=== PATIENT | male | born 1965 | race Caucasian/White ===

== ENCOUNTER 2017-03-18 15:55 | Observation (INO) ==
--- NOTE | 2017-03-18 16:50 | Emergency Department Note ---
START Narrative - START START: I examined this patient and my medical decision-making was reviewed with the Resident Physician, Daniel Rodriguez. I agree with the documented findings, disposition and treatment plan as described except to the extent set forth below. I have personally performed a face to face evaluation on this patient. I have reviewed and agree with the care plan. Briefly: A 52-year-old male morbidly obese history of foot appears to be CHF and chronic lower extremity venous insufficiency on clindamycin for healing leg ulcers develop watery stools slipped and fell although chief complaint is left leg pain patient has no leg pain on history of physical examination. Patient will have screening labs including C. difficile toxin and stool will be admitted for rehabilitation and further evaluation. Disposition pending
--- NOTE | 2017-03-18 16:53 | Emergency Department Note ---
Disposition Clinical Impression: Supratherapeutic INR, Lower leg edema Falls Qualifiers: Encounter type: initial encounter Qualified Code(s): W19.XXXA - Unspecified fall, initial encounter Disposition: Admitted As Inpatient Condition: Fair Time of Disposition: 17:41 General Adult HPI - General Chief complaint: ED Extremity Injury, Lower Stated complaint: left leg pain Time Seen by Provider: 03/18/17 16:06 Source: patient Mode of arrival: ambulatory Limitations: no limitations Nursing Notes Reviewed: Yes Vital Signs Reviewed: Yes - History of Present Illness HPI Narrative: 52-year-old male with a history of A. fib on Coumadin and chronic lower leg edema present for evaluation of recurrent falls. Patient states that these fallen at least twice in the past week. Patient states his most recent fall was prior to arrival. Patient states that he was using his walker and slipped where his left leg gave out. Patient denies any pain High-Risk chief complaint does say that he has left leg pain. Patient denies any dyspnea. Patient has a chest pain. States he has been receiving clindamycin for a chronic warts from the ulcer which appears to be healing per the patient. Patient states that he has been having profuse diarrhea. Denies any fevers. No nausea or vomiting. Pain Scale: 0 - Related Data Home Medications Medication Instructions Recorded Confirmed Allopurinol [Zyloprim 300 MG] 300 mg PO DAILY #0 11/17/14 03/18/17 Diltiazem HCl [Diltiazem 24Hr Cd] 240 mg PO DAILY #0 11/17/14 03/18/17 Lisinopril [Zestril] 2.5 mg PO DAILY 04/15/15 03/18/17 Potassium Chloride [K-Tab ER] 20 meq PO DAILY 04/15/15 03/18/17 Ropinirole HCl [Requip] 2 mg PO HS 04/15/15 03/18/17 clonazePAM [Klonopin] 1 mg PO BID 04/15/15 03/18/17 Zolpidem Tartrate [Ambien Cr] 12.5 mg PO HS 04/24/15 03/18/17 BuPROPion XL (24 HR) [Wellbutrin 300 mg PO DAILY 03/18/17 03/18/17 XL] Clindamycin HCl [Cleocin HCl] 300 mg PO QID 03/18/17 03/18/17 Lactobacillus Acidophilus 1 cap PO DAILY 03/18/17 03/18/17 [Acidophilus] Warfarin [Coumadin] 5 mg PO DAILY 03/18/17 03/18/17 Previous Rx's Medication Instructions Recorded Oxycodone HCl/Acetaminophen 1 tab PO Q6H PRN #15 tablet 04/26/15 [Percocet 10-325 mg Tablet] Allergies Allergy/AdvReac Type Severity Reaction Status Date / Time codeine Allergy Drowsy Verified 11/17/14 10:56 acetaminophen AdvReac STOMACH Verified 04/24/15 07:34 [From Darvocet-N 100] PAIN cephalexin [From Keflex] AdvReac FLU LIKE Verified 04/24/15 07:34 SYMPTOMS colchicine AdvReac Diarrhea Verified 04/24/15 07:34 propoxyphene AdvReac STOMACH Verified 04/24/15 07:34 [From Darvocet-N 100] PAIN [id number] Reductase AdvReac Nausea Verified 04/24/15 07:34 Inhibitor [Statins] All systems ED: reviewed and negative except as stated. Constitutional: Denies: fever Eyes: Denies: eye pain ENT ED: Denies: ear pain Cardiovascular: Denies: chest pain Respiratory: Denies: cough, dyspnea Gastrointestinal: Reports: diarrhea. Denies: abdominal pain, nausea Past Medical History - Past Medical History Source: patient Medical history: Reports: atrial fibrillation, GERD, hypertension, kidney stones , venous stasis Surgical history: Reports: other Psychiatric history: Reports: anxiety, depression, prior suicide attempt, previous psychiatric hospitalization - Social History Smoking Status: Never smoker Smokeless Tobacco Status: No Alcohol use: Reports: none Drug use: Reports: none Physical Exam - General Limitations: no limitations General appearance: alert, in no apparent distress, obese - Head Head exam: atraumatic, normocephalic, normal inspection - Eye Eye exam: Present: normal appearance, PERRL, EOMI - ENT ENT exam: normal exam, normal oropharynx, mucous membranes moist - Neck Neck exam: Present: normal inspection, full ROM, trachea midline - Chest Chest inspection: Present: normal inspection, symmetric chest wall rise - Respiratory Respiratory exam: Present: normal lung sounds bilaterally, respiratory distress - Cardiovascular Cardiovascular exam: Present: normal rhythm, irregular rhythm. Absent: systolic murmur - Abdominal Exam Abdominal exam: Present: soft, Non-Tender, distention. Absent: guarding, rebound - Extremities Exam Extremities exam: Present: normal inspection, pedal edema (Chronic lower extremity edema with vascular skin changes. Symmetric. ) - Neurological Exam Neurological exam: Present: alert, oriented X3, CN II-XII intact - Skin Skin exam: Present: warm, dry, intact, normal color Course Course Narrative: Patient arrives from EMS. Patient states that he can no longer take care of himself at home given his recurrent falls. Patient likely has physical deconditioning as well as comorbidities that do not allow him to perform as activities of daily living. Patient to basic lab work including EKG and troponin and chest x-ray. Patient would likely need admitted for formal physical therapy evaluation and discharge planning. Vital Signs Temperature 97.2 F L 03/18/17 15:56 Pulse Rate 76 03/18/17 15:56 Respiratory Rate 20 03/18/17 15:56 Blood Pressure 130/80 03/18/17 15:56 O2 Sat by Pulse Oximetry 96 03/18/17 15:56 Temperature 97.2 F L 03/18/17 15:56 Pulse Rate 76 03/18/17 15:56 Respiratory Rate 20 03/18/17 15:56 Blood Pressure 130/80 03/18/17 15:56 O2 Sat by Pulse Oximetry 96 03/18/17 15:56 Oxygen Delivery Oxygen Delivery Room Air Medical Decision Making - [facility] Narrative Medical decision making narrative: 52 presents for evaluation of recurrent falls. Patient does not have any loss of conscious. During the course of the patient's evaluation the patient was noted have subtherapeutic INR. Patient did not receive a head CT as the patient does not exhibit any focal neurologic deficits. Patient's mechanism of fall did not appear to be high-energy. Patient simply lost his balance with his left foot. Gently bringing himself to the ground. Patient states that he can no longer help and assistance of at home. Patient's chest x-ray shows no acute abnormalities. Patient's hemogram is stable on his A. fib. Patient does have chronic lower vascular insufficiency and ulcers. Patient's been on clindamycin. Patient's having diarrhea and C. difficile was ordered from ED visit. This is the patient's second ED presentation in the past couple days. Patient is not physically fit enough to take care of herself at home. Concerns of repeat ED presentation as well as recurrent falls on subtherapeutic INR therefore the patient will be hospitalized. Patient would best benefit from hospitalization with formal PT OT evaluation. - Lab Data Lab results reviewed: Yes I reviewed the patient's lab results. Result diagrams: 03/18/17 16:54 03/18/17 16:54 Lab Results 03/18/17 03/18/17 03/18/17 Range/Units 16:50 16:54 16:54 WBC (4.3-11.1) K/mcL RBC (4.19-5.50) M/mcL Hgb (12.9-16.9) g/dL Hct (37.5-50.1) % MCV (83.0-100.0) fL MCH (28.0-33.3) pg MCHC (31.6-35.5) g/dL RDW (11.5-14.5) % Plt Count (140-400) K/mcL MPV (9.4-12.4) fL Immature Gran % (0-4) % Seg Neutrophils % % Lymphocytes % % Monocytes % % Eosinophils % % Basophils % % Neutrophils # (1.6-8.9) K/mcL Lymphocytes # (0.6-4.6) K/mcL Monocytes # (0.0-1.3) K/mcL Eosinophils # (0.0-0.6) K/mcL Basophils # (0.0-0.2) K/mcL PT 39.4 H (9.4-12.1) Seconds INR 3.6 Sodium (136-145) mEq/L Potassium (3.5-5.1) mEq/L Chloride (98-107) mEq/L Carbon Dioxide (23-29) mEq/L BUN (6-20) mg/dL Creatinine (0.70-1.30) mg/dL Est GFR ( Amer) (> 60) Est GFR (Non-Af Amer) (> 60) BUN/Creatinine Ratio (6-26) Glucose (70-105) mg/dL Calculated Osmolality (280-300) Calcium (8.6-10.3) mg/dL Troponin I (< 0.04) ng/mL B-Natriuretic Peptide 60 (Less than 100) pg/mL Stl C. diff Tox B Gene Negative (Negative) 0203/18/17 03/18/17 Range/Units 16:54 16:54 16:54 WBC 8.8 (4.3-11.1) K/mcL RBC 4.31 (4.19-5.50) M/mcL Hgb 13.8 (12.9-16.9) g/dL Hct 42.0 (37.5-50.1) % MCV 97.4 (83.0-100.0) fL MCH 32.0 (28.0-33.3) pg MCHC 32.9 (31.6-35.5) g/dL RDW 14.9 H (11.5-14.5) % Plt Count 295 (140-400) K/mcL MPV 12.5 H (9.4-12.4) fL Immature Gran % 0.3 (0-4) % Seg Neutrophils % 66.2 % Lymphocytes % 16.3 % Monocytes % 11.7 % Eosinophils % 5.0 % Basophils % 0.5 % Neutrophils # 5.8 (1.6-8.9) K/mcL Lymphocytes # 1.4 (0.6-4.6) K/mcL Monocytes # 1.0 (0.0-1.3) K/mcL Eosinophils # 0.4 (0.0-0.6) K/mcL Basophils # 0.0 (0.0-0.2) K/mcL PT (9.4-12.1) Seconds INR Sodium 138 (136-145) mEq/L Potassium 3.5 (3.5-5.1) mEq/L Chloride 103 (98-107) mEq/L Carbon Dioxide 29 (23-29) mEq/L BUN 10 (6-20) mg/dL Creatinine 0.83 (0.70-1.30) mg/dL Est GFR ( Amer) > 60 (> 60) Est GFR (Non-Af Amer) > 60 (> 60) BUN/Creatinine Ratio 12 (6-26) Glucose 93 (70-105) mg/dL Calculated Osmolality 285 (280-300) Calcium 9.7 (8.6-10.3) mg/dL Troponin I < 0.03 (< 0.04) ng/mL B-Natriuretic Peptide (Less than 100) pg/mL Stl C. diff Tox B Gene (Negative) - Radiology Data Radiology results reviewed: Yes I reviewed the patient's radiology results. Chest X-Ray 03/18/17 16:06 IMPRESSION: No visualize focal airspace disease. D/ / Dannielle Griffin MD / Dannielle Griffin MD Interpreting Provider: Dannielle Griffin MD - EKG Data EKG #1 EKG attestation: Yes I reviewed and interpreted this EKG. Rate: tachycardia Rhythm: A.Fib [place]/QRS: left axis deviation Q waves: aVF Interpretation: unchanged when compared to prior tracing (date), nonspecific ST- T wave changes S.B.A.R. - S.B.A.R. Situation: Demographics Background: Presenting Complaint Assessment: Vital Signs, Course and respsone to treatment, Patient/Family Expectation Recommendation: Barrier(s) to disposition, Recommendation based on pending studies, treatments, or consults S.B.A.R. Report Given to: Troy Meek [email or web address] Repor Time: 18:00
[2017-03-18 17:13] LABS: Basophils % 0.5 %; Eosinophils # 0.4 K/mcL (0.0-0.6); Hemoglobin 13.8 g/dL (12.9-16.9); Immature Granulocytes % 0.3 % (0-4); Lymphocytes # 1.4 K/mcL (0.6-4.6); Lymphocytes % 16.3 %; Mean Corpuscular HGB Conc 32.9 g/dL (31.6-35.5); Mean Corpuscular Volume 97.4 fL (83.0-100.0); Mean Platelet Volume 12.5 fL (9.4-12.4); Monocytes % 11.7 %; Neutrophils # 5.8 K/mcL (1.6-8.9); Platelet Count 295 K/mcL (140-400); Red Blood Count 4.31 M/mcL (4.19-5.50); Red Cell Distribution Width 14.9 % (11.5-14.5); Segmented Neutrophils % 66.2 %
[2017-03-18 17:26] LABS: INR 3.6; Prothrombin Time 39.4 Seconds (9.4-12.1)
[2017-03-18 17:32] LABS: BUN/Creatinine Ratio 12 (6-26); Blood Urea Nitrogen 10 mg/dL (6-20); Calcium 9.7 mg/dL (8.6-10.3); Carbon Dioxide 29 mEq/L (23-29); Chloride 103 mEq/L (98-107); Glucose 93 mg/dL (70-105); Osmolality,Calculated 285 (280-300); Potassium 3.5 mEq/L (3.5-5.1); Sodium 138 mEq/L (136-145); eGFR For African Americans > 60 (> 60); eGFR For Non-African Americans > 60 (> 60)
[2017-03-18] MEDS ORDERED: Naloxone 0.4 MG/ML INJ IVP PRN (18:43)
[2017-03-18] MEDS ORDERED: *HR* OxyCODONE/APAP 10/325 TABLET PO PRN (19:34)
[2017-03-18] MEDS: clonazePAM 1 MG TABLET PO SCH (21:50)
[2017-03-18] MEDS: rOPINIRole 1 MG TABLET PO SCH (21:50)
--- NOTE | 2017-03-18 21:59 | Internal Med History&Physical ---
Date of Encounter: 03/18/17 Time of Encounter: 18:00 Assessment and Plan (1) Falls Current visit: Yes Status: Acute Acute on chronic falls. Pt. reports fall today as well as hx of falls at home. Pt. fell today d/t left leg giving out. Reports bilateral leg weakness. Pt. has BMI of 59.4 and is 204.117 kg. Body habitus playing a role in LE weakness. Reports no injury from today's fall but expresses anxiety r/t fear of falling at home. Was hospitalized at [facility] and discharged on Monday for same sx. Falls/safety precautions, up with assist, and bed rest w/bathroom privileges. PT/OT consults ordered to assess patient for ambulation strength, stability, safety, and possible home assistive needs as well as appropriateness for rehabilitation services in SNF. Pt. discussed w/Dr. Freedman who is in agreement w/plan of care. Pt. is high risk for further morbidity and injury d/t hx of falls, bilateral leg weakness, and body habitus size. Observation. Qualifiers: Encounter type: initial encounter Qualified Code(s): W19.XXXA - Unspecified fall, initial encounter (2) GERD (gastroesophageal reflux disease) Current visit: Yes Status: Chronic Hx of chronic GERD. IVP Zofran 4 mg Q8 for N/V. Prilosec 40 mg PO daily. Qualifiers: Esophagitis presence: esophagitis presence not specified Qualified Code(s) : K21.9 - Gastro-esophageal reflux disease without esophagitis (3) HTN (hypertension) Current visit: Yes Status: Chronic Hx of chronic HTN. Monitor pt. and VS. Continue pts. lisinopril. Qualifiers: Hypertension type: essential hypertension Qualified Code(s): I10 - Essential (primary) hypertension (4) Lower leg edema Current visit: Yes Status: Chronic Hx of chronic LE edema d/t chronic venous stasis. Pt. reports being followed by Wound Care for venous stasis. Skin ulcers present on bilateral soles of feet and on buttocks. Wound Care consult and daily wound care ordered. (5) Atrial fibrillation Current visit: Yes Status: Chronic Hx of chronic atrial fibrillation. Continue patient's Coumadin with pharmacy dosing and Diltiazem. Continuous cardiac telemetry. Qualifiers: Atrial fibrillation type: chronic Qualified Code(s): I48.2 - Chronic atrial fibrillation (6) Gout Current visit: Yes Status: Chronic Hx of chronic gout. Continue pts. allopurinol. Qualifiers: Gout site: unspecified site Gout etiology: unspecified cause Chronicity: unspecified Qualified Code(s): M10.9 - Gout, unspecified (7) Anxiety and depression Current visit: Yes Status: Chronic Hx of chronic anxiety and depression. Continue patient's Klonopin and Wellbutrin. (8) DVT prophylaxis Current visit: Yes Status: Acute Continue patient's Coumadin with pharmacy dosing for DVT prophylaxis. Monitor patient for signs of bleeding. Internal Medicine - H&P: HPI Chief complaint: Fall Admitted From: Emergency Dept Plans for Post Hospital Care: Home History of present illness: Mr. Nick is a 52 year old male with medical hx of atrial fibrillation, GERD, HTN, kidney stones, venous stasis in bilateral LEs presents from the ED with chief complaint of fall today due to bilateral leg weakness. Patient reports he has fallen at least twice in the past week and has history of falls at home. Patient states he was using his walker when his left leg became weak and gave out on him. Patient reports he went down slowly and did not suffer injury. Patient reports bilateral leg weakness and skin ulcers on bilateral soles of feet and buttocks but denies recent illness, fever, chills, nausea, vomiting, headache, changes in vision, chest pain, shortness of breath, cough, chest congestion, abdominal pain, diarrhea, constipation, numbness, tingling, dizziness, lightheadedness, pre-syncope, or syncope. Past Med Surg Social Fam HX - Past Medical History Source: patient, old records reviewed Medical history: atrial fibrillation, GERD, hypertension, kidney stones, venous stasis Psychiatric history: anxiety, depression, prior suicide attempt, previous psychiatric hospitalization - Past Surgical History Surgical History: other - Social History Smoking Status: Never smoker Smokeless Tobacco Status: No Alcohol use: none Drug use: none Current living situation: Home Activity Level: Uses cane/walker Recent Out of Country Travel Within the Last 8 Weeks: No Exposure or Possible Exposure to Illness During Travel: No - Family History Father Race: Family Member Ethnicity: Non- Living Status: Age at : 54 Cause of : [place] Hx Family Cardiac Disorders: Yes ([place]) Mother Race: Family Member Ethnicity: Non- Living Status: Age at : 63 Cause of : Renal Failure Hx Family Genitourinary Disorders: Yes (Renal failure) Internal Medicine - H&P: Meds Allopurinol [Zyloprim 300 MG] 300 mg PO DAILY #0 11/17/14 [History] Diltiazem HCl [Diltiazem 24Hr Cd] 240 mg PO DAILY #0 11/17/14 [History] Lisinopril [Zestril] 2.5 mg PO DAILY 04/15/15 [History] Potassium Chloride [K-Tab ER] 20 meq PO DAILY 04/15/15 [History] Ropinirole HCl [Requip] 2 mg PO HS 04/15/15 [History] clonazePAM [Klonopin] 1 mg PO BID 04/15/15 [History] Zolpidem Tartrate [Ambien Cr] 12.5 mg PO HS 04/24/15 [History] Oxycodone HCl/Acetaminophen [Percocet 10-325 mg Tablet] 1 tab PO Q6H PRN #15 tablet 04/26/15 [Rx] BuPROPion XL (24 HR) [Wellbutrin XL] 300 mg PO DAILY 03/18/17 [History] Clindamycin HCl [Cleocin HCl] 300 mg PO QID 03/18/17 [History] Lactobacillus Acidophilus [Acidophilus] 1 cap PO DAILY 03/18/17 [History] Warfarin [Coumadin] 5 mg PO DAILY 03/18/17 [History] 3 Allergy/AdvReac Type Severity Reaction Status Date / Time codeine Allergy Drowsy Verified 11/17/14 10:56 acetaminophen AdvReac STOMACH Verified 04/24/15 07:34 [From Darvocet-N 100] PAIN cephalexin [From Keflex] AdvReac FLU LIKE Verified 04/24/15 07:34 SYMPTOMS colchicine AdvReac Diarrhea Verified 04/24/15 07:34 propoxyphene AdvReac STOMACH Verified 04/24/15 07:34 [From Darvocet-N 100] PAIN Gkbwjtd-Oxe-Vhi Reductase AdvReac Nausea Verified 04/24/15 07:34 Inhibitor [Statins] All Systems PM: A 10-system review of systems was performed and is negative for pertinent findings except as documented above in the HPI. - Constitutional Constitutional: as per HPI, falls, weakness (Bilateral leg weakness), no chills , no fever(s), no night sweats - EENT Eyes: no change in vision, no discharge, no pain, no photophobia Ears: no ear discharge, no ear pain, no tinnitus Nose, mouth and throat: no dysphagia, no nasal discharge, no neck pain, no sore throat - Breasts Breasts: as per HPI - Cardiovascular Cardiovascular ROS IM: no chest pain, no diaphoresis, no dyspnea, no lightheadedness, no palpitations, no syncope - Respiratory Respiratory: no cough, no dyspnea, no wheezing, no excessive phlegm production - Gastrointestinal Gastrointestinal: no abdominal pain, no diarrhea, no hematemesis, no hematochezia, no melena, no nausea, no vomiting - Genitourinary Genitourinary ROS male: as per HPI - Musculoskeletal Musculoskeletal ROS IM: no numbness, no tingling - Integumentary Integumentary IM: as per HPI, skin ulcer, sores (Bilateral soles of feet and sacrum) - Neurological Neurological ROS: as per HPI (Bilateral legs), weakness, no confusion, no convulsions, no focal weakness, no numbness, no tingling, no tremor(s) - Psychiatric Psychiatric: as per HPI, anxiety, depression, other (Prior suicide attempt in 1998 and previous psychiatric hospitalization) - Endocrine Endocrine IM: as per HPI - Hematologic/Lymphatic Hematologic/Lymphatic: no easy bruising - Allergic/Immunologic Allergic/Immunologic: as per HPI - Constitutional Vitals: Temp Pulse Resp BP Pulse Ox 98.1 F 78 16 136/72 97 03/18/17 19:52 03/18/17 19:52 03/18/17 19:52 03/18/17 19:52 03/18/17 19:52 General appearance: Present: cooperative, A&O X 3, morbidly obese, pleasant, no acute distress, answers questions appropriately - Head Head exam: Present: atraumatic, normocephalic - Eye Eye exam: Present: PERRL, conjuntiva pink, sclera anicteric Pupils: Present: PERRL - ENT ENT exam: Present: normal exam - Neck Neck exam general surgery: Present: normal inspection, supple, trachea midline. Absent: lymphadenopathy - Respiratory Respiratory exam: Present: CTAB. Absent: accessory muscle use, rales, rhonchi, wheezes - Cardiovascular Cardiovascular exam: Present: irregular rhythm (Atrial fibrillation) - GI/Abdominal GI/Abdominal exam: Present: normal bowel sounds, soft, no peritoneal signs. Absent: distended, tenderness - Rectal Rectal exam: Present: deferred - Additional comments: exam deferred. - Extremities Exam Extremities exam: Present: pedal edema (Venous stasis present on bilateral legs) , warm, radial pulses palpable and symmetrical. Absent: calf tenderness, cyanotic - Back Exam Back exam: Present: normal inspection - Psychiatric Psychiatric exam: Present: normal affect, normal mood - Skin Skin exam: Present: dry, erythema (Bilateral LEs d/t venous stasis), intact Additional comments: Patient has ulcers on bilateral soles of feet and on buttocks which will require wound care daily. Internal Med - H&P Results - Labs CBC & Chem 7: 03/18/17 16:54 03/18/17 16:54 - EKG Data Prior EKG available for review: yes EKG comments: 03/18/17 22:43 EKG dated 03/06/17 shows atrial fibrillation with rapid ventricular response, low QRS voltage in precordial leads, possible anterior myocardial infarction ( probably old). EKG dated 03/18/17 atrial fibrillation with rapid ventricular response, marked left axis deviation, low QRS voltage in precordial leads, possible anterior myocardial infarction of indeterminate age. - Diagnostic Studies Chest x-ray Additional comments: Impressions Chest X-Ray 03/18/17 16:06 IMPRESSION: No visualize focal airspace disease. D/ / Dannielle Griffin MD / Dannielle Griffin MD Interpreting Provider: Dannielle Griffin MD
[2017-03-18] MEDS ORDERED: Ondansetron 4 MG/2 ML VIAL IVP PRN (22:55)
[2017-03-19 07:44] LABS: INR 3.1
[2017-03-19 07:51] LABS: Basophils # 0.1 K/mcL (0.0-0.2); Basophils % 0.8 %; Eosinophils # 0.4 K/mcL (0.0-0.6); Eosinophils % 5.9 %; Hematocrit 37.6 % (37.5-50.1); Immature Granulocytes % 0.3 % (0-4); Lymphocytes # 1.5 K/mcL (0.6-4.6); Lymphocytes % 21.1 %; Mean Corpuscular HGB Conc 31.9 g/dL (31.6-35.5); Mean Corpuscular Hemoglobin 31.7 pg (28.0-33.3); Mean Corpuscular Volume 99.2 fL (83.0-100.0); Monocytes % 13.5 %; Neutrophils # 4.1 K/mcL (1.6-8.9); Platelet Count 263 K/mcL (140-400); Red Blood Count 3.79 M/mcL (4.19-5.50); Red Cell Distribution Width 15.1 % (11.5-14.5); Segmented Neutrophils % 58.4 %
[2017-03-19 08:05] LABS: Hemoglobin A1C 5.1 %
[2017-03-19 08:10] LABS: Alanine Aminotransferase 94 Units/L (7-52); Albumin 3.3 g/dL (3.5-5.7); Albumin/Globulin Ratio 1.2 (1.1-2.2); Alkaline Phosphatase 49 Units/L (34-104); Aspartate Amino Transferase 49 Units/L (13-39); BUN/Creatinine Ratio 11 (6-26); Bilirubin,Total 0.9 mg/dL (0.3-1.0); Blood Urea Nitrogen 10 mg/dL (6-20); Calcium 8.9 mg/dL (8.6-10.3); Carbon Dioxide 28 mEq/L (23-29); Chloride 105 mEq/L (98-107); Chol/HDL Ratio 4.3 (0-4.9); Cholesterol 119 mg/dL (< 200); Globulin 2.7 g/dL (2.4-3.5); Glucose 89 mg/dL (70-105); HDL Cholesterol 28 mg/dL (40-59); LDL Cholesterol,Calculated 75 mg/dL (0-99); Magnesium 1.7 mg/dL (1.6-2.6); Osmolality,Calculated 289 (280-300); Potassium 3.6 mEq/L (3.5-5.1); Sodium 140 mEq/L (136-145); Triglycerides 81 mg/dL (< 150); eGFR For African Americans > 60 (> 60); eGFR For Non-African Americans > 60 (> 60)
--- NOTE | 2017-03-19 08:47 | Event Note ---
Date of Encounter: 03/18/17 Time of Encounter: 20:00 Discussed with an MICHAEL and agree with assessment and plan Will consult physical therapy for evaluation for ECF placement due to frequent falls.
[2017-03-19] MEDS: Diltiazem CD (24hr) 240 MG CAPSULE PO SCH (09:55)
[2017-03-19] MEDS: Lactobacillus 1 EACH CAP.SPRINK PO SCH (09:56)
[2017-03-19] MEDS: BuPROPion XL (24 HR) 150 MG TABLET PO SCH (09:56)
[2017-03-19] MEDS: clonazePAM 1 MG TABLET PO SCH ×2 (10:01→19:54)
--- NOTE | 2017-03-19 17:59 | Internal Med Progress Note ---
Date of Encounter: 03/19/17 Time of Encounter: 11:54 - Assessment and plan (1) Falls Current Visit: Yes Status: Acute Assessment and plan: Acute on chronic falls. Patient has been experiencing falls city his legs are giving out he has bilateral leg weakness his BMI is 59.4. He was recently hospitalized at [facility] discharge on Monday preceding symptoms however he feels that he was not ready to be discharged and has decreased strength. He will receive PT and OT possible homeless at the knees and may be placement SNF for rehab care Qualifiers: Encounter type: initial encounter Qualified Code(s): W19.XXXA - Unspecified fall, initial encounter (2) DVT prophylaxis Current Visit: Yes Status: Acute Assessment and plan: Continue with warfarin (3) GERD (gastroesophageal reflux disease) Current Visit: Yes Status: Chronic Assessment and plan: IVP Zofran Prilosec 40 mg by mouth daily Qualifiers: Esophagitis presence: esophagitis presence not specified Qualified Code(s) : K21.9 - Gastro-esophageal reflux disease without esophagitis (4) HTN (hypertension) Current Visit: Yes Status: Chronic Assessment and plan: History of chronic hypertension continue with lisinopril Qualifiers: Hypertension type: essential hypertension Qualified Code(s): I10 - Essential (primary) hypertension (5) Lower leg edema Current Visit: Yes Status: Chronic Assessment and plan: Hx of chronic LE edema d/t chronic venous stasis. Pt. reports being followed by Wound Care for venous stasis. Skin ulcers present on bilateral soles of feet and on buttocks. Wound Care consult and daily wound care ordered. (6) Atrial fibrillation Current Visit: Yes Status: Chronic Assessment and plan: Cardizem and Coumadin Qualifiers: Atrial fibrillation type: chronic Qualified Code(s): I48.2 - Chronic atrial fibrillation (7) Gout Current Visit: Yes Status: Chronic Assessment and plan: History of chronic gout continue with allopurinol Qualifiers: Gout site: unspecified site Gout etiology: unspecified cause Chronicity: unspecified Qualified Code(s): M10.9 - Gout, unspecified - Subjective Interval history: She was recently discharged from [facility] he is morbidly obese with lower extremity swelling and wounds to lower extremities. He has difficulty ambulating. He has had several falls at home. Presently he continues to complain of lower extremity swelling and foot pain - Constitutional Vitals: Temp Pulse Resp BP Pulse Ox 97.8 F 100 20 98/65 94 03/19/17 07:00 03/19/17 07:00 03/19/17 07:00 03/19/17 07:00 03/19/17 07:00 General appearance: Present: cooperative, A&O X 3, morbidly obese, pleasant, no acute distress, answers questions appropriately - Head Head exam: Present: atraumatic, normocephalic - Eye Eye exam: Present: PERRL, conjuntiva pink, sclera anicteric Pupils: Present: PERRL - Neck Neck exam general surgery: Present: supple, trachea midline. Absent: lymphadenopathy - Respiratory Respiratory exam: Present: CTAB. Absent: accessory muscle use, rales, rhonchi, wheezes - Cardiovascular Cardiovascular exam: Present: RRR, +S1, +S2. Absent: diastolic murmur, gallop, rubs, systolic murmur - GI/Abdominal GI/Abdominal exam: Present: normal bowel sounds, soft, no peritoneal signs. Absent: distended, tenderness - Extremities Exam Extremities exam: Present: warm, radial pulses palpable and symmetrical. Absent : calf tenderness, cyanotic, pedal edema - Neurological Exam Neurological exam: Present: CN II-XII intact, oriented X3, no focal deficits. Absent: pronater drift, facial droop, speech deficit - Skin Skin exam: Present: dry, intact Internal Medicine: Result - Labs CBC & Chem 7: 03/19/17 06:57 03/19/17 06:57 Labs: Short CBC 03/19/17 Range/Units 06:57 WBC 7.1 (4.3-11.1) K/mcL Hgb 12.0 L D (12.9-16.9) g/dL Hct 37.6 (37.5-50.1) % Plt Count 263 (140-400) K/mcL Neutrophils # 4.1 (1.6-8.9) K/mcL BMP 03/19/17 06:57 Sodium 140 Potassium 3.6 Chloride 105 Carbon Dioxide 28 BUN 10 Creatinine 0.89 Glucose 89 Calcium 8.9 Liver Function 03/19/17 Range/Units 06:57 Total Bilirubin 0.9 (0.3-1.0) mg/dL AST 49 H (13-39) Units/L ALT 94 H (7-52) Units/L Alkaline Phosphatase 49 (34-104) Units/L Albumin 3.3 L (3.5-5.7) g/dL - ABG Interpretation ABG results: PT/INR, D-dimer PT 34.0 Seconds (9.4-12.1) H 03/19/17 06:57 Consult Discharge Plan - Plan Referrals: Ace Santizo MD [Primary Care Provider] -
[2017-03-19] MEDS ORDERED: Warfarin perPT PO PRN (18:00)
[2017-03-19] MEDS ORDERED: *HR* Warfarin 2 MG TABLET PO ONE (18:00)
[2017-03-19] MEDS: rOPINIRole 1 MG TABLET PO SCH (19:54)
[2017-03-20 05:49] LABS: Basophils # 0.1 K/mcL (0.0-0.2); Basophils % 0.8 %; Eosinophils # 0.4 K/mcL (0.0-0.6); Eosinophils % 5.9 %; Hematocrit 36.9 % (37.5-50.1); Hemoglobin 11.9 g/dL (12.9-16.9); Immature Granulocytes % 0.4 % (0-4); Lymphocytes # 1.6 K/mcL (0.6-4.6); Lymphocytes % 22.8 %; Mean Corpuscular HGB Conc 32.2 g/dL (31.6-35.5); Mean Corpuscular Hemoglobin 31.2 pg (28.0-33.3); Mean Corpuscular Volume 96.9 fL (83.0-100.0); Mean Platelet Volume 12.7 fL (9.4-12.4); Monocytes # 0.9 K/mcL (0.0-1.3); Monocytes % 12.7 %; Neutrophils # 4.1 K/mcL (1.6-8.9); Platelet Count 273 K/mcL (140-400); Red Blood Count 3.81 M/mcL (4.19-5.50); Red Cell Distribution Width 14.9 % (11.5-14.5); Segmented Neutrophils % 57.4 %
[2017-03-20 05:59] LABS: INR 2.5; Prothrombin Time 27.6 Seconds (9.4-12.1)
[2017-03-20 06:30] LABS: Alanine Aminotransferase 83 Units/L (7-52); Albumin 3.4 g/dL (3.5-5.7); Albumin/Globulin Ratio 1.3 (1.1-2.2); Alkaline Phosphatase 53 Units/L (34-104); Aspartate Amino Transferase 42 Units/L (13-39); BUN/Creatinine Ratio 12 (6-26); Bilirubin,Total 0.7 mg/dL (0.3-1.0); Blood Urea Nitrogen 11 mg/dL (6-20); Calcium 8.8 mg/dL (8.6-10.3); Carbon Dioxide 27 mEq/L (23-29); Chloride 104 mEq/L (98-107); Globulin 2.7 g/dL (2.4-3.5); Glucose 82 mg/dL (70-105); Osmolality,Calculated 286 (280-300); Potassium 3.3 mEq/L (3.5-5.1); Sodium 139 mEq/L (136-145); Total Protein 6.1 g/dL (6.4-8.9); eGFR For African Americans > 60 (> 60); eGFR For Non-African Americans > 60 (> 60)
[2017-03-20] MEDS: Lactobacillus 1 EACH CAP.SPRINK PO SCH (07:56)
[2017-03-20] MEDS: Diltiazem CD (24hr) 240 MG CAPSULE PO SCH (07:56)
[2017-03-20] MEDS: clonazePAM 1 MG TABLET PO SCH ×2 (07:56→21:04)
[2017-03-20] MEDS: BuPROPion XL (24 HR) 150 MG TABLET PO SCH (07:56)
[2017-03-20] MEDS ORDERED: *HR* Warfarin 4 MG TABLET PO ONE (18:00)
[2017-03-20] MEDS: Miconazole 2% ointment 114 GM TUBE TP SCH (18:45)
--- NOTE | 2017-03-20 19:50 | Internal Med Progress Note ---
Date of Encounter: 03/20/17 Time of Encounter: 13:00 - Assessment and plan (1) Falls Current Visit: Yes Status: Acute Assessment and plan: Patient was evaluated by PT OT today recommending inpatient rehabilitation/ swing bed according to social worker clinical's he is complaining rehabilitation placement-however he expressed to me that he would do something short-term Qualifiers: Encounter type: initial encounter Qualified Code(s): W19.XXXA - Unspecified fall, initial encounter (2) GERD (gastroesophageal reflux disease) Current Visit: Yes Status: Chronic Assessment and plan: IVP Zofran Prilosec 40 mg by mouth daily Qualifiers: Esophagitis presence: esophagitis presence not specified Qualified Code(s) : K21.9 - Gastro-esophageal reflux disease without esophagitis (3) HTN (hypertension) Current Visit: Yes Status: Chronic Assessment and plan: History of chronic hypertension continue with lisinopril Qualifiers: Hypertension type: essential hypertension Qualified Code(s): I10 - Essential (primary) hypertension (4) Lower leg edema Current Visit: Yes Status: Chronic Assessment and plan: Hx of chronic LE edema d/t chronic venous stasis. Pt. reports being followed by Wound Care for venous stasis. Skin ulcers present on bilateral soles of feet and on buttocks. Wound Care consult and daily wound care ordered. (5) Atrial fibrillation Current Visit: Yes Status: Chronic Assessment and plan: Cardizem and Coumadin-patient did have some episodes of tachycardia last night however he appears to be around 90-100 at this time Qualifiers: Atrial fibrillation type: chronic Qualified Code(s): I48.2 - Chronic atrial fibrillation (6) Gout Current Visit: Yes Status: Chronic Assessment and plan: History of chronic gout continue with allopurinol Qualifiers: Gout site: unspecified site Gout etiology: unspecified cause Chronicity: unspecified Qualified Code(s): M10.9 - Gout, unspecified (7) DVT prophylaxis Current Visit: Yes Status: Acute Assessment and plan: Continue with warfarin (8) Wound, open, foot Current Visit: Yes Status: Chronic Assessment and plan: Patient has bilateral foot wounds daily cells of his feet appear to have been possibly blisters that were opened. He was initiated on clindamycin which will continue. Consulted wound care Qualifiers: Encounter type: initial encounter Laterality: unspecified laterality Qualified Code(s): S91.309A - Unspecified open wound, unspecified foot, initial encounter - Time Spent With Patient less than 15 minutes - Subjective Interval history: Patient complaining of foot pain anticipating PT OT evaluation-feels that he needs more physical therapy to get back to baseline. Requesting his antibiotic which she was on at home which we will resume - Constitutional Vitals: Temp Pulse Resp BP Pulse Ox 98.5 F 100 16 109/77 90 03/20/17 19:39 03/20/17 19:39 03/20/17 19:39 03/20/17 19:39 03/20/17 19:39 General appearance: Present: cooperative, A&O X 3, morbidly obese, pleasant, no acute distress, answers questions appropriately - Head Head exam: Present: atraumatic, normocephalic - Neck Neck exam general surgery: Present: supple, trachea midline. Absent: lymphadenopathy - Respiratory Respiratory exam: Present: CTAB. Absent: accessory muscle use, rales, rhonchi, wheezes - Cardiovascular Cardiovascular exam: Present: RRR, +S1, +S2. Absent: diastolic murmur, gallop, rubs, systolic murmur - GI/Abdominal GI/Abdominal exam: Present: normal bowel sounds, soft, no peritoneal signs. Absent: distended, tenderness - Extremities Exam Extremities exam: Present: pedal edema, warm, radial pulses palpable and symmetrical. Absent: calf tenderness, cyanotic - Expanded Lower Extremities Exam Lower Leg exam: Present: dislocation, swelling Foot/Toe exam: Present: tenderness - Neurological Exam Neurological exam: Present: CN II-XII intact, oriented X3, no focal deficits. Absent: pronater drift, facial droop, speech deficit - Skin Skin exam: Present: dry, intact Internal Medicine: Result - Labs CBC & Chem 7: 03/20/17 04:39 03/20/17 04:39 Labs: Short CBC 03/20/17 Range/Units 04:39 WBC 7.1 (4.3-11.1) K/mcL Hgb 11.9 L (12.9-16.9) g/dL Hct 36.9 L (37.5-50.1) % Plt Count 273 (140-400) K/mcL Neutrophils # 4.1 (1.6-8.9) K/mcL BMP 03/20/17 04:39 Sodium 139 Potassium 3.3 L Chloride 104 Carbon Dioxide 27 BUN 11 Creatinine 0.90 Glucose 82 Calcium 8.8 Liver Function 03/20/17 Range/Units 04:39 Total Bilirubin 0.7 (0.3-1.0) mg/dL AST 42 H (13-39) Units/L ALT 83 H (7-52) Units/L Alkaline Phosphatase 53 (34-104) Units/L Albumin 3.4 L (3.5-5.7) g/dL - ABG Interpretation ABG results: PT/INR, D-dimer PT 27.6 Seconds (9.4-12.1) H 03/20/17 04:39 Consult Discharge Plan - Plan Referrals: Ace Santizo MD [Primary Care Provider] -
[2017-03-20] MEDS: rOPINIRole 1 MG TABLET PO SCH (21:04)
[2017-03-21 06:22] LABS: Basophils # 0.1 K/mcL (0.0-0.2); Basophils % 0.7 %; Eosinophils # 0.4 K/mcL (0.0-0.6); Hematocrit 36.2 % (37.5-50.1); Immature Granulocytes % 0.1 % (0-4); Lymphocytes # 1.6 K/mcL (0.6-4.6); Lymphocytes % 21.4 %; Mean Corpuscular HGB Conc 33.1 g/dL (31.6-35.5); Mean Corpuscular Hemoglobin 31.9 pg (28.0-33.3); Mean Corpuscular Volume 96.3 fL (83.0-100.0); Mean Platelet Volume 12.8 fL (9.4-12.4); Monocytes # 0.9 K/mcL (0.0-1.3); Monocytes % 11.8 %; Neutrophils # 4.6 K/mcL (1.6-8.9); Platelet Count 289 K/mcL (140-400); Red Blood Count 3.76 M/mcL (4.19-5.50); Red Cell Distribution Width 14.9 % (11.5-14.5)
[2017-03-21 06:36] LABS: INR 2.3
[2017-03-21 06:48] LABS: Alanine Aminotransferase 76 Units/L (7-52); Albumin 3.5 g/dL (3.5-5.7); Albumin/Globulin Ratio 1.3 (1.1-2.2); Alkaline Phosphatase 55 Units/L (34-104); Aspartate Amino Transferase 37 Units/L (13-39); BUN/Creatinine Ratio 12 (6-26); Bilirubin,Total 0.8 mg/dL (0.3-1.0); Blood Urea Nitrogen 9 mg/dL (6-20); Carbon Dioxide 27 mEq/L (23-29); Chloride 105 mEq/L (98-107); Globulin 2.8 g/dL (2.4-3.5); Glucose 86 mg/dL (70-105); Osmolality,Calculated 284 (280-300); Potassium 3.5 mEq/L (3.5-5.1); Sodium 138 mEq/L (136-145); Total Protein 6.3 g/dL (6.4-8.9); eGFR For African Americans > 60 (> 60); eGFR For Non-African Americans > 60 (> 60)
[2017-03-21] MEDS: Lactobacillus 1 EACH CAP.SPRINK PO SCH (09:51)
[2017-03-21] MEDS: Diltiazem CD (24hr) 240 MG CAPSULE PO SCH (09:51)
[2017-03-21] MEDS: clonazePAM 1 MG TABLET PO SCH ×2 (09:52→20:34)
[2017-03-21] MEDS: BuPROPion XL (24 HR) 150 MG TABLET PO SCH (09:52)
[2017-03-21] MEDS: Miconazole 2% ointment 114 GM TUBE TP SCH (15:30)
--- NOTE | 2017-03-21 16:12 | Internal Med Progress Note ---
Date of Encounter: 03/21/17 Time of Encounter: 10:30 - Assessment and plan (1) Wound, open, foot Current Visit: Yes Status: Chronic Assessment and plan: Patient has bilateral foot wounds daily cells of his feet appear to have been possibly blisters that were opened. Cont clindamycin and local wound care. Qualifiers: Encounter type: initial encounter Laterality: unspecified laterality Qualified Code(s): S91.309A - Unspecified open wound, unspecified foot, initial encounter (2) Falls Current Visit: Yes Status: Acute Assessment and plan: Patient was evaluated by PT OT today recommending inpatient rehabilitation/ swing bed. fast food worker assisting with discharge. Qualifiers: Encounter type: initial encounter Qualified Code(s): W19.XXXA - Unspecified fall, initial encounter (3) Atrial fibrillation Current Visit: Yes Status: Chronic Assessment and plan: per hx. with transient tachycardia but overall rate controlled. Continue home BB, CCB, Coumadin. Qualifiers: Atrial fibrillation type: chronic Qualified Code(s): I48.2 - Chronic atrial fibrillation (4) GERD (gastroesophageal reflux disease) Current Visit: Yes Status: Chronic Assessment and plan: IVP Zofran Prilosec 40 mg by mouth daily Qualifiers: Esophagitis presence: esophagitis presence not specified Qualified Code(s) : K21.9 - Gastro-esophageal reflux disease without esophagitis (5) HTN (hypertension) Current Visit: Yes Status: Chronic Assessment and plan: History of chronic hypertension continue with lisinopril Qualifiers: Hypertension type: essential hypertension Qualified Code(s): I10 - Essential (primary) hypertension (6) Lower leg edema Current Visit: Yes Status: Chronic Assessment and plan: Hx of chronic LE edema d/t chronic venous stasis. Pt. reports being followed by Wound Care for venous stasis. Skin ulcers present on bilateral soles of feet and on buttocks. Wound Care consult and daily wound care ordered. (7) DVT prophylaxis Current Visit: Yes Status: Acute Assessment and plan: coumadin - Subjective Interval history: Seen and examined at bedside. Patient is new to me. Information obtained from chart review and patient report. Patient says he feels significantly better and is anxiously awaiting discharge. Says he is not sure if he is going to acute rehabilitation versus home. Complains of some discomfort to bilateral foot wounds with dressing changes otherwise he has no complaints. - Constitutional Vitals: Temp Pulse Resp BP Pulse Ox 98.0 F 89 18 93/54 95 03/21/17 15:27 03/21/17 15:27 03/21/17 15:27 03/21/17 15:27 03/21/17 15:27 General appearance: Present: cooperative, A&O X 3, morbidly obese, pleasant, no acute distress, answers questions appropriately - Head Head exam: Present: atraumatic, normocephalic - Eye Eye exam: Present: PERRL, conjuntiva pink, sclera anicteric Pupils: Present: PERRL - Neck Neck exam general surgery: Present: supple, trachea midline. Absent: lymphadenopathy - Respiratory Respiratory exam: Present: CTAB. Absent: accessory muscle use, rales, rhonchi, wheezes - Cardiovascular Cardiovascular exam: Present: RRR, +S1, +S2. Absent: diastolic murmur, gallop, rubs, systolic murmur - GI/Abdominal GI/Abdominal exam: Present: normal bowel sounds, soft, no peritoneal signs. Absent: distended, tenderness - Extremities Exam Extremities exam: Present: warm, radial pulses palpable and symmetrical. Absent : calf tenderness, cyanotic, pedal edema - Neurological Exam Neurological exam: Present: CN II-XII intact, oriented X3, no focal deficits. Absent: pronater drift, facial droop, speech deficit - Skin Skin exam: Present: dry Additional comments: Bilateral lower extremity wounds. Dressings clean dry and intact. Internal Medicine: Result - Labs CBC & Chem 7: 03/21/17 05:31 03/21/17 05:31 Labs: Short CBC 03/21/17 Range/Units 05:31 WBC 7.6 (4.3-11.1) K/mcL Hgb 12.0 L (12.9-16.9) g/dL Hct 36.2 L (37.5-50.1) % Plt Count 289 (140-400) K/mcL Neutrophils # 4.6 (1.6-8.9) K/mcL BMP 03/21/17 05:31 Sodium 138 Potassium 3.5 Chloride 105 Carbon Dioxide 27 BUN 9 Creatinine 0.74 Glucose 86 Calcium 9.0 Liver Function 03/21/17 Range/Units 05:31 Total Bilirubin 0.8 (0.3-1.0) mg/dL AST 37 (13-39) Units/L ALT 76 H (7-52) Units/L Alkaline Phosphatase 55 (34-104) Units/L Albumin 3.5 (3.5-5.7) g/dL - ABG Interpretation ABG results: PT/INR, D-dimer PT 25.0 Seconds (9.4-12.1) H 03/21/17 05:31 Consult Discharge Plan - Plan Referrals: Ace Santizo MD [Primary Care Provider] -
[2017-03-21] MEDS ORDERED: *HR* Warfarin 4 MG TABLET PO ONE (18:00)
--- NOTE | 2017-03-21 19:45 | Electrocardiograph Report ---
[address] [address] Test Date: 2017-03-18 Pat Name: Praneeth Nick Department: 104 Room: 3B Gender: M [employer] Chemist: KINSEY : 1965 Requested By: Daniel Rodriguez Order Number: [id number] Reading MD: Rito Albert MD Measurements Intervals [place] Rate: 116 P: AR: 0 QRS: -31 QRSD: 107 T: 31 QT: 328 QTc: 397 Interpretive Statements ATRIAL FIBRILLATION WITH RAPID VENTRICULAR RESPONSE MARKED LEFT AXIS DEVIATION LOW QRS VOLTAGE IN PRECORDIAL LEADS Poor R wave progression Electronically Signed On 03-21-2017 19:43:46 EST by Rito Albert MD
[2017-03-21] MEDS: rOPINIRole 1 MG TABLET PO SCH (20:34)
[2017-03-22 05:12] LABS: INR 2.4; Prothrombin Time 26.8 Seconds (9.4-12.1)
[2017-03-22] MEDS: Lactobacillus 1 EACH CAP.SPRINK PO SCH (08:21)
[2017-03-22] MEDS: clonazePAM 1 MG TABLET PO SCH (08:21)
[2017-03-22] MEDS: BuPROPion XL (24 HR) 150 MG TABLET PO SCH (08:21)
[2017-03-22] MEDS: Diltiazem CD (24hr) 240 MG CAPSULE PO SCH (08:21)
[2017-03-22] MEDS: Miconazole 2% ointment 114 GM TUBE TP SCH (08:22)
[2017-03-22 15:17] VITALS: BP 95/68
--- NOTE | 2017-03-22 16:21 | Discharge Summary ---
Date of Encounter: 03/22/17 Time of Encounter: 13:00 - Discharge Diagnosis (1) Wound, open, foot Priority: Primary Status: Chronic Comments: hx chronic lower extremity edema with venous stasis ulcers; follows with wound care. No evidence of of infection. Will stop ATB. Continue local wound care at SNF. Qualifiers: Encounter type: initial encounter Laterality: unspecified laterality Qualified Code(s): S91.309A - Unspecified open wound, unspecified foot, initial encounter (2) Falls Priority: Primary Status: Acute Comments: Recurrent. Suspect multifactorial secondary to obesity, lower extremity edema and wounds. Evaluated by PT/OT who is recommending SNF. Qualifiers: Encounter type: initial encounter Qualified Code(s): W19.XXXA - Unspecified fall, initial encounter (3) Atrial fibrillation Priority: Secondary Status: Chronic Comments: per hx. Rate controlled. Cont CCB, coumadin Qualifiers: Atrial fibrillation type: chronic Qualified Code(s): I48.2 - Chronic atrial fibrillation (4) GERD (gastroesophageal reflux disease) Priority: Secondary Status: Chronic Comments: per hx. Sx' s controlled with PPI Qualifiers: Esophagitis presence: esophagitis presence not specified Qualified Code(s) : K21.9 - Gastro-esophageal reflux disease without esophagitis (5) HTN (hypertension) Priority: Secondary Status: Chronic Comments: per hx. BP variable but acceptable. Continue home BP medication. BP can be monitored and titrated at SNF Qualifiers: Hypertension type: essential hypertension Qualified Code(s): I10 - Essential (primary) hypertension - Discharge Medications Prescriptions: clonazePAM [Klonopin] 1 mg PO BID 7 Days #14 tablet OxyCODONE/APAP 10/325 [Percocet 10/325 MG] 1 each PO Q6H PRN 7 Days #42 tablet PRN Reason: Pain rOPINIRole [Requip] 2 mg PO HS #14 tablet Zolpidem [Ambien] 10 mg PO HS PRN 7 Days #7 tablet PRN Reason: Sleep Home Medications: Allopurinol [Zyloprim 300 MG] 300 mg PO DAILY #0 11/17/14 [History] Diltiazem HCl [Diltiazem 24Hr Cd] 240 mg PO DAILY #0 11/17/14 [History] Lisinopril [Zestril] 2.5 mg PO DAILY 04/15/15 [History] Potassium Chloride [K-Tab ER] 20 meq PO DAILY 04/15/15 [History] BuPROPion XL (24 HR) [Wellbutrin Xl] 300 mg PO DAILY 03/18/17 [History] Lactobacillus Acidophilus [Acidophilus] 1 cap PO DAILY 03/18/17 [History] Warfarin [Coumadin] 5 mg PO DAILY 03/18/17 [History] OxyCODONE/APAP 10/325 [Percocet 10/325 MG] 1 each PO Q6H PRN 7 Days #42 tablet 03/22/17 [Rx] Zolpidem [Ambien] 10 mg PO HS PRN 7 Days #7 tablet 03/22/17 [Rx] clonazePAM [Klonopin] 1 mg PO BID 7 Days #14 tablet 03/22/17 [Rx] rOPINIRole [Requip] 2 mg PO HS #14 tablet 03/22/17 [Rx] Allergies/Adverse Reactions: 3 Allergy/AdvReac Type Severity Reaction Status Date / Time codeine Allergy Drowsy Verified 11/17/14 10:56 acetaminophen AdvReac STOMACH Verified 04/24/15 07:34 [From Darvocet-N 100] PAIN cephalexin [From Keflex] AdvReac FLU LIKE Verified 04/24/15 07:34 SYMPTOMS colchicine AdvReac Diarrhea Verified 04/24/15 07:34 propoxyphene AdvReac STOMACH Verified 04/24/15 07:34 [From Darvocet-N 100] PAIN Gkdstzy-Nzi-Weq Reductase AdvReac Nausea Verified 04/24/15 07:34 Inhibitor [Statins] Date of admission: 03/18/17 18:19 Primary care physician: Ace Santizo MD Consults: 03/18/17 19:27 Consult to Area Operations Director [CONS] Routine Reason for SW Consult: Please assess patient for possible home needs for post -discharge planning. Pt. states he uses walker and is SOB. Denies home O2 use. Please assess for SNF rehabilitation. 03/18/17 19:29 Consult to Occupational Therapy [CONS] Routine Comment: Evaluate, develop and implement POC Reason for Consult: Patient has hx of falls at home with most recent today d/ t bilateral leg weakness. Please assess patient for ambulation strength, safety, stability, and possible assistive needs for post-discharge planning. Also assess for SNF rehabilitation needs post-discharge. 03/18/17 19:30 Consult to Physical Therapy [CONS] Routine Comment: Evaluate, develop and implement POC Reason for Consult: Patient has hx of falls at home with most recent today d/ t bilateral leg weakness. Please assess patient for ambulation strength, safety, stability, and possible assistive needs for post-discharge planning. Also assess for SNF rehabilitation needs post-discharge. 03/18/17 19:33 Consult to Wound Care [CONS] Routine Reason for Consult: Patient has chronic wounds on bilateral soles of feet and sacrum that will need daily wound care recommendations. Call Completed: No Discharging clinician: Jaylene Miller Anticipated date of discharge: 03/22/17 - Patient Status Disposition: Transfer SNF Condition: Good Functional capacity at discharge: uses cane/walker Overall status at discharge: patient is progressing back to baseline - Discharge Instructions Follow Up With: Ace Santizo MD [Primary Care Provider] - - Diet and Activity Activity: as per physical therapy Diet: low fat, low cholesterol, low salt diet Interval History: Seen and examined at bedside, patient says he feels well and is anticipating discharge later today. Has some mild comfort to her lower extremities otherwise he has no complaints. No numbness or tingling chest pain, no shortness of breath. Hospital course: See assessment and plan for hospital course - Time Spent with Patient Total time spent providing and/or coordinating discharge services: - Constitutional Vitals: Temp Pulse Resp BP Pulse Ox 97.7 F 80 16 95/68 92 03/22/17 15:15 03/22/17 15:15 03/22/17 15:15 03/22/17 15:15 03/22/17 15:15 General appearance: Present: cooperative, A&O X 3, morbidly obese, pleasant, no acute distress, answers questions appropriately - Head Head exam: Present: atraumatic, normocephalic - Eye Eye exam: Present: PERRL, conjuntiva pink, sclera anicteric Pupils: Present: PERRL - Neck Neck exam general surgery: Present: supple, trachea midline. Absent: lymphadenopathy - Respiratory Respiratory exam: Present: CTAB. Absent: accessory muscle use, rales, rhonchi, wheezes - Cardiovascular Cardiovascular exam: Present: RRR, +S1, +S2. Absent: diastolic murmur, gallop, rubs, systolic murmur - GI/Abdominal GI/Abdominal exam: Present: normal bowel sounds, soft, no peritoneal signs. Absent: distended, tenderness - Extremities Exam Extremities exam: Present: pedal edema, warm, radial pulses palpable and symmetrical. Absent: calf tenderness, cyanotic - Neurological Exam Neurological exam: Present: CN II-XII intact, oriented X3, no focal deficits. Absent: pronater drift, facial droop, speech deficit - Skin Skin exam: Present: dry Additional comments: Bilateral lower ext edema wounds; dressings C/D/I
--- NOTE | 2017-03-22 16:47 | Physician Discharge Referral ---
ExtendedCare Referral Info Transfer To: SNF Provider in Charge: Jaylene Miller CNP Provider in Charge after Transfer: PCP Institutional Level of Care: Skilled - Diagnosis (1) Wound, open, foot Status: Chronic (2) Falls Status: Acute (3) Atrial fibrillation Status: Chronic (4) GERD (gastroesophageal reflux disease) Status: Chronic (5) HTN (hypertension) Status: Chronic - Transfer Medications Prescriptions: clonazePAM [Klonopin] 1 mg PO BID 7 Days #14 tablet OxyCODONE/APAP 10/325 [Percocet 10/325 MG] 1 each PO Q6H PRN 7 Days #42 tablet PRN Reason: Pain rOPINIRole [Requip] 2 mg PO HS #14 tablet Zolpidem [Ambien] 10 mg PO HS PRN 7 Days #7 tablet PRN Reason: Sleep Home Medications: Allopurinol [Zyloprim 300 MG] 300 mg PO DAILY #0 11/17/14 [History] Diltiazem HCl [Diltiazem 24Hr Cd] 240 mg PO DAILY #0 11/17/14 [History] Lisinopril [Zestril] 2.5 mg PO DAILY 04/15/15 [History] Potassium Chloride [K-Tab ER] 20 meq PO DAILY 04/15/15 [History] BuPROPion XL (24 HR) [Wellbutrin Xl] 300 mg PO DAILY 03/18/17 [History] Lactobacillus Acidophilus [Acidophilus] 1 cap PO DAILY 03/18/17 [History] Warfarin [Coumadin] 5 mg PO DAILY 03/18/17 [History] OxyCODONE/APAP 10/325 [Percocet 10/325 MG] 1 each PO Q6H PRN 7 Days #42 tablet 03/22/17 [Rx] Zolpidem [Ambien] 10 mg PO HS PRN 7 Days #7 tablet 03/22/17 [Rx] clonazePAM [Klonopin] 1 mg PO BID 7 Days #14 tablet 03/22/17 [Rx] rOPINIRole [Requip] 2 mg PO HS #14 tablet 03/22/17 [Rx] Allergies/Adverse Reactions: 3 Allergy/AdvReac Type Severity Reaction Status Date / Time codeine Allergy Drowsy Verified 11/17/14 10:56 acetaminophen AdvReac STOMACH Verified 04/24/15 07:34 [From Darvocet-N 100] PAIN cephalexin [From Keflex] AdvReac FLU LIKE Verified 04/24/15 07:34 SYMPTOMS colchicine AdvReac Diarrhea Verified 04/24/15 07:34 propoxyphene AdvReac STOMACH Verified 04/24/15 07:34 [From Darvocet-N 100] PAIN Dlmsjkw-Eqh-Wjz Reductase AdvReac Nausea Verified 04/24/15 07:34 Inhibitor [Statins] - Respiratory Orders Smoking Cessation: Smoking cessation has been advised. For more information, call the [place] Tobacco Quit Line at 5-610-SOIU-NOW. - Lab Orders Lab Orders: Other (include drug levels w/frequency) (INR needs drawn for Coumadin dosing) - Advance Directives Code Status: Full Code - Mobility Orders Ambulate - Rehabiliation Orders Rehab Potential: Good Rehab Orders: Evaluation for Physical Therapy, Evaluation for Occupational Therapy - Diet Orders Regular, No Added Salt (TORRES), No Concentrated Sweets CERTIFICATION: I certify that the transfer of the above named patient to an Extended Care Facility is necessary for the continuing treatment of the diagnosis listed. The above information is true and accurate reflection of patient's current condition. Confidential - Redisclosure prohibited without a patient's written consent.
[2017-03-22] MEDS ORDERED: *HR* Warfarin 4 MG TABLET PO ONE (18:00)
== END 2017-03-22 18:50 ==
LOC: EMEROO 15:55 → 3BNU 15:55
PROVIDERS: ADMIT Registered Nurse; ATTEND Registered Nurse

== ENCOUNTER 2019-11-11 15:06 | Inpatient (IN) ==
[2019-11-11] MEDS ORDERED: Piperacillin/Tazobactam 3.375 GM in Water for inj. (sterile) 20 ML IVP ONE (15:29)
[2019-11-11] MEDS ORDERED: Vancomycin 2,000 MG/520 ML IV.SOLN IVPB ONE (15:29)
[2019-11-11 15:59] LABS: Basophils # 0.1 K/mcL (0.0-0.2); Basophils % 0.7 %; Eosinophils # 0.4 K/mcL (0.0-0.6); Eosinophils % 3.8 %; Hematocrit 41.7 % (37.5-50.1); Immature Granulocytes % 0.3 % (0-4); Lymphocytes # 2.5 K/mcL (0.6-4.6); Lymphocytes % 25.4 %; Mean Corpuscular HGB Conc 33.6 g/dL (31.6-35.5); Mean Corpuscular Volume 95.2 fL (83.0-100.0); Mean Platelet Volume 12.8 fL (9.4-12.4); Monocytes # 1.2 K/mcL (0.0-1.3); Neutrophils # 5.7 K/mcL (1.6-8.9); Platelet Count 240 K/mcL (140-400); Red Blood Count 4.38 M/mcL (4.19-5.50); Red Cell Distribution Width 14.5 % (11.5-14.5); Segmented Neutrophils % 57.8 %; White Blood Count 9.9 K/mcL (4.3-11.1)
[2019-11-11 16:02] LABS: Alanine Aminotransferase 16 Units/L (7-52); Albumin/Globulin Ratio 1.4 (1.1-2.2); Alkaline Phosphatase 85 Units/L (34-104); Aspartate Amino Transferase 17 Units/L (13-39); BUN/Creatinine Ratio 10 (6-26); Bilirubin,Direct 0.5 mg/dL (0.0-0.2); Bilirubin,Indirect 1.1 mg/dL (0.0-1.0); Bilirubin,Total 1.6 mg/dL (0.3-1.0); Blood Urea Nitrogen 11 mg/dL (6-20); Calcium 9.2 mg/dL (8.6-10.3); Carbon Dioxide 23 mEq/L (23-29); Chloride 98 mEq/L (98-107); Globulin 2.9 g/dL (2.4-3.5); Glucose 107 mg/dL (70-105); Magnesium 1.7 mg/dL (1.6-2.6); Osmolality,Calculated 276 (280-300); Phosphorous 2.1 mg/dL (2.7-4.5); Potassium 3.7 mEq/L (3.5-5.1); Sodium 133 mEq/L (136-145); Total Protein 6.9 g/dL (6.4-8.9); Troponin I < 0.03 ng/mL (< 0.04); eGFR For African Americans > 60 (> 60); eGFR For Non-African Americans > 60 (> 60)
[2019-11-11 17:22] LABS: INR 2.6; Prothrombin Time 29.8 Seconds (9.4-12.1)
[2019-11-11] MEDS ORDERED: Naloxone 0.4 MG/ML INJ IVP PRN (18:21)
[2019-11-11] MEDS ORDERED: Ondansetron 4 MG/2 ML VIAL IVP PRN (18:21)
[2019-11-11 18:50] LABS: Bacteria,Urine Few per hpf (None-Few); Hyaline Casts,Urine Moderate per lpf (None Seen); Mucus,Urine Few per lpf (None-Few); Squamous Epithelial Cell,Urine Few per hpf (None-Few); WBC,Urine 15-30 per hpf (0-3)
[2019-11-11 18:56] LABS: Bilirubin,Urine Small (Negative); Blood,Urine Trace-lysed (Negative); Clarity,Urine Clear (Clear); Color,Urine Yellow (Yellow); Glucose,Urine (UA) 100 mg/dL (Normal); Ketones,Urine Trace mg/dL (Negative); Leukocyte Esterase,Urine Small (Negative); Nitrite,Urine Negative (Negative); Protein,Urine 30 mg/dL (Neg-Trace)
[2019-11-11] MEDS: clonazePAM 1 MG TABLET PO SCH (20:51)
[2019-11-11] MEDS: Ringers Solution, Lactated 1,000 ML IVC SCH (20:51)
[2019-11-11] MEDS: Furosemide 20 MG/2 ML VIAL IVP SCH (21:11)
[2019-11-12] MEDS: Piperacillin/Tazobactam 3.375 GM in 0.9 % Sodium Chloride Mini Bag 100 ML IVPB SCH ×4 (00:19→23:24)
[2019-11-12] MEDS: Vancomycin 2,000 MG/520 ML IV.SOLN IVPB SCH ×2 (03:21→16:40)
[2019-11-12 05:07] LABS: INR 2.7; Prothrombin Time 30.3 Seconds (9.4-12.1)
[2019-11-12 05:08] LABS: BUN/Creatinine Ratio 11 (6-26); Basophils # 0.1 K/mcL (0.0-0.2); Basophils % 0.7 %; Blood Urea Nitrogen 11 mg/dL (6-20); Calcium 8.4 mg/dL (8.6-10.3); Carbon Dioxide 24 mEq/L (23-29); Chloride 100 mEq/L (98-107); Eosinophils # 0.2 K/mcL (0.0-0.6); Eosinophils % 2.3 %; Glucose 106 mg/dL (70-105); Hematocrit 38.2 % (37.5-50.1); Hemoglobin 12.6 g/dL (12.9-16.9); Immature Granulocytes % 0.4 % (0-4); Lymphocytes # 1.2 K/mcL (0.6-4.6); Lymphocytes % 14.3 %; Magnesium 1.7 mg/dL (1.6-2.6); Mean Corpuscular Hemoglobin 31.8 pg (28.0-33.3); Mean Corpuscular Volume 96.5 fL (83.0-100.0); Mean Platelet Volume 12.3 fL (9.4-12.4); Monocytes # 1.1 K/mcL (0.0-1.3); Monocytes % 13.5 %; Neutrophils # 5.8 K/mcL (1.6-8.9); Osmolality,Calculated 276 (280-300); Phosphorous 3.6 mg/dL (2.7-4.5); Platelet Count 224 K/mcL (140-400); Potassium 4.1 mEq/L (3.5-5.1); Red Blood Count 3.96 M/mcL (4.19-5.50); Red Cell Distribution Width 14.6 % (11.5-14.5); Segmented Neutrophils % 68.8 %; Sodium 133 mEq/L (136-145); White Blood Count 8.4 K/mcL (4.3-11.1); eGFR For African Americans > 60 (> 60); eGFR For Non-African Americans > 60 (> 60)
[2019-11-12] MEDS: Ringers Solution, Lactated 1,000 ML IVC SCH (06:51)
[2019-11-12] MEDS: lisinopriL 5 MG TABLET PO SCH (07:59)
[2019-11-12] MEDS: DilTIAZem CD (24hr) 240 MG CAP.ER.24H PO SCH (07:59)
[2019-11-12] MEDS: clonazePAM 1 MG TABLET PO SCH ×3 (07:59→20:26)
[2019-11-12] MEDS: allopurinoL 300 MG TABLET PO SCH (07:59)
[2019-11-12] MEDS: Furosemide 20 MG/2 ML VIAL IVP SCH (07:59)
[2019-11-12] MEDS ORDERED: Gadolinium Contrast Agent (WT Based) IV PRN (11:01)
[2019-11-12] MEDS: Nystatin POWDER 30 GM BOTTLE TP SCH ×2 (13:40→20:30)
[2019-11-12] MEDS ORDERED: Sennosides/Docusate Sodium TABLET PO PRN (14:18)
[2019-11-12] MEDS ORDERED: *HR* Warfarin 4 MG TABLET PO ONE (18:00)
[2019-11-12] MEDS ORDERED: Warfarin perPT PO PRN (18:00)
[2019-11-12] MEDS: *HR* OxyCODONE/APAP 7.5/325 TABLET PO PRN (20:29)
[2019-11-13 01:35] LABS: Basophils # 0.1 K/mcL (0.0-0.2); Basophils % 0.9 %; Eosinophils # 0.4 K/mcL (0.0-0.6); Eosinophils % 4.6 %; Hematocrit 37.6 % (37.5-50.1); Hemoglobin 12.2 g/dL (12.9-16.9); Immature Granulocytes % 0.5 % (0-4); Lymphocytes # 1.4 K/mcL (0.6-4.6); Lymphocytes % 17.7 %; Mean Corpuscular HGB Conc 32.4 g/dL (31.6-35.5); Mean Corpuscular Hemoglobin 30.9 pg (28.0-33.3); Mean Corpuscular Volume 95.2 fL (83.0-100.0); Mean Platelet Volume 12.3 fL (9.4-12.4); Monocytes # 1.1 K/mcL (0.0-1.3); Monocytes % 13.6 %; Neutrophils # 4.9 K/mcL (1.6-8.9); Platelet Count 226 K/mcL (140-400); Red Blood Count 3.95 M/mcL (4.19-5.50); Red Cell Distribution Width 14.6 % (11.5-14.5); Segmented Neutrophils % 62.7 %; White Blood Count 7.8 K/mcL (4.3-11.1)
[2019-11-13 01:39] LABS: INR 2.5; Prothrombin Time 28.2 Seconds (9.4-12.1)
[2019-11-13 01:56] LABS: BUN/Creatinine Ratio 14 (6-26); Blood Urea Nitrogen 13 mg/dL (6-20); Calcium 8.8 mg/dL (8.6-10.3); Carbon Dioxide 25 mEq/L (23-29); Chloride 101 mEq/L (98-107); Glucose 98 mg/dL (70-105); Osmolality,Calculated 278 (280-300); Potassium 3.9 mEq/L (3.5-5.1); Sodium 134 mEq/L (136-145); Vancomycin,Trough 15 mcg/mL (5-10); eGFR For African Americans > 60 (> 60); eGFR For Non-African Americans > 60 (> 60)
[2019-11-13] MEDS: Vancomycin 2,000 MG/520 ML IV.SOLN IVPB SCH ×2 (04:59→17:15)
[2019-11-13] MEDS: Furosemide 20 MG/2 ML VIAL IVP SCH (09:18)
[2019-11-13] MEDS: Furosemide 40 MG TABLET PO SCH (09:19)
[2019-11-13] MEDS: allopurinoL 300 MG TABLET PO SCH (09:19)
[2019-11-13] MEDS: lisinopriL 5 MG TABLET PO SCH (09:19)
[2019-11-13] MEDS: BuPROPion XL (24 HR) 150 MG TABLET PO SCH (09:19)
[2019-11-13] MEDS: Cholecalciferol (D-3) 1,000 UNIT (25MCG) TABLET PO SCH (09:19)
[2019-11-13] MEDS: clonazePAM 1 MG TABLET PO SCH ×3 (09:19→20:57)
[2019-11-13] MEDS: DilTIAZem CD (24hr) 240 MG CAP.ER.24H PO SCH (09:19)
[2019-11-13] MEDS: Piperacillin/Tazobactam 3.375 GM in 0.9 % Sodium Chloride Mini Bag 100 ML IVPB SCH ×2 (09:48→17:15)
[2019-11-13] MEDS: Nystatin POWDER 30 GM BOTTLE TP SCH ×2 (09:49→20:57)
[2019-11-13] MEDS ORDERED: *HR* Warfarin 5 MG TABLET PO ONE (18:00)
[2019-11-13] MEDS: *HR* Metoprolol 5 MG/5 ML VIAL IVP PRN (21:09)
[2019-11-14] MEDS: Piperacillin/Tazobactam 3.375 GM in 0.9 % Sodium Chloride Mini Bag 100 ML IVPB SCH ×3 (00:33→17:19)
[2019-11-14] MEDS: Vancomycin 2,000 MG/520 ML IV.SOLN IVPB SCH (04:30)
[2019-11-14 05:24] LABS: INR 2.7; Prothrombin Time 30.7 Seconds (9.4-12.1)
[2019-11-14 05:30] LABS: Basophils # 0.1 K/mcL (0.0-0.2); Basophils % 0.8 %; Eosinophils # 0.4 K/mcL (0.0-0.6); Eosinophils % 5.2 %; Hemoglobin 12.5 g/dL (12.9-16.9); Immature Granulocytes % 0.3 % (0-4); Lymphocytes # 1.2 K/mcL (0.6-4.6); Mean Corpuscular HGB Conc 32.9 g/dL (31.6-35.5); Mean Corpuscular Hemoglobin 32.1 pg (28.0-33.3); Mean Corpuscular Volume 97.7 fL (83.0-100.0); Mean Platelet Volume 12.6 fL (9.4-12.4); Monocytes % 12.9 %; Neutrophils # 5.1 K/mcL (1.6-8.9); Platelet Count 242 K/mcL (140-400); Red Blood Count 3.89 M/mcL (4.19-5.50); Red Cell Distribution Width 14.6 % (11.5-14.5); Segmented Neutrophils % 65.8 %; White Blood Count 7.7 K/mcL (4.3-11.1)
[2019-11-14 05:45] LABS: BUN/Creatinine Ratio 12 (6-26); Blood Urea Nitrogen 15 mg/dL (6-20); Calcium 9.5 mg/dL (8.6-10.3); Carbon Dioxide 25 mEq/L (23-29); Chloride 103 mEq/L (98-107); Glucose 103 mg/dL (70-105); Osmolality,Calculated 283 (280-300); Sodium 136 mEq/L (136-145); eGFR For African Americans > 60 (> 60); eGFR For Non-African Americans > 60 (> 60)
[2019-11-14] MEDS: allopurinoL 300 MG TABLET PO SCH (09:48)
[2019-11-14] MEDS: lisinopriL 5 MG TABLET PO SCH (09:48)
[2019-11-14] MEDS: DilTIAZem CD (24hr) 240 MG CAP.ER.24H PO SCH (09:48)
[2019-11-14] MEDS: BuPROPion XL (24 HR) 150 MG TABLET PO SCH (09:48)
[2019-11-14] MEDS: *HR* Metoprolol 5 MG/5 ML VIAL IVP PRN (09:48)
[2019-11-14] MEDS: Cholecalciferol (D-3) 1,000 UNIT (25MCG) TABLET PO SCH (09:48)
[2019-11-14] MEDS: clonazePAM 1 MG TABLET PO SCH ×3 (09:48→20:30)
[2019-11-14] MEDS: Furosemide 40 MG TABLET PO SCH (09:48)
[2019-11-14] MEDS: Nystatin POWDER 30 GM BOTTLE TP SCH ×2 (09:51→20:30)
[2019-11-14] MEDS: *HR* OxyCODONE/APAP 7.5/325 TABLET PO PRN (09:52)
[2019-11-14] MEDS: Vancomycin 1,500 MG/265 ML IV.SOLN IVPB SCH (17:19)
[2019-11-14] MEDS ORDERED: *HR* Warfarin 4 MG TABLET PO ONE (18:00)
[2019-11-15] MEDS: Piperacillin/Tazobactam 3.375 GM in 0.9 % Sodium Chloride Mini Bag 100 ML IVPB SCH ×4 (00:21→23:05)
[2019-11-15 03:22] LABS: Basophils # 0.1 K/mcL (0.0-0.2); Basophils % 0.8 %; Eosinophils # 0.4 K/mcL (0.0-0.6); Hematocrit 37.4 % (37.5-50.1); Immature Granulocytes % 0.6 % (0-4); Lymphocytes # 1.3 K/mcL (0.6-4.6); Lymphocytes % 15.2 %; Mean Corpuscular HGB Conc 32.1 g/dL (31.6-35.5); Mean Corpuscular Volume 96.6 fL (83.0-100.0); Mean Platelet Volume 12.6 fL (9.4-12.4); Monocytes # 1.1 K/mcL (0.0-1.3); Monocytes % 13.5 %; Neutrophils # 5.5 K/mcL (1.6-8.9); Nucleated Red Blood Cells 0.2 /100 WBC (0); Platelet Count 258 K/mcL (140-400); Red Blood Count 3.87 M/mcL (4.19-5.50); Red Cell Distribution Width 14.7 % (11.5-14.5); Segmented Neutrophils % 64.9 %; White Blood Count 8.4 K/mcL (4.3-11.1)
[2019-11-15 03:29] LABS: INR 2.8; Prothrombin Time 32.3 Seconds (9.4-12.1)
[2019-11-15 03:43] LABS: Calcium 9.5 mg/dL (8.6-10.3); Potassium 3.6 mEq/L (3.5-5.1)
[2019-11-15] MEDS: Vancomycin 1,500 MG/265 ML IV.SOLN IVPB SCH (04:13)
[2019-11-15] MEDS: DilTIAZem CD (24hr) 180 MG CAP.ER.24H PO SCH (08:15)
[2019-11-15] MEDS: allopurinoL 300 MG TABLET PO SCH (08:16)
[2019-11-15] MEDS: Cholecalciferol (D-3) 1,000 UNIT (25MCG) TABLET PO SCH (08:16)
[2019-11-15] MEDS: lisinopriL 5 MG TABLET PO SCH (08:16)
[2019-11-15] MEDS: Furosemide 40 MG TABLET PO SCH (08:16)
[2019-11-15] MEDS: clonazePAM 1 MG TABLET PO SCH ×3 (08:17→20:55)
[2019-11-15] MEDS: Nystatin POWDER 30 GM BOTTLE TP SCH ×2 (08:17→20:55)
[2019-11-15] MEDS: BuPROPion XL (24 HR) 150 MG TABLET PO SCH (08:17)
[2019-11-15] MEDS: *HR* Metoprolol 5 MG/5 ML VIAL IVP PRN (11:32)
[2019-11-15] MEDS ORDERED: *HR* Warfarin 4 MG TABLET PO ONE (18:00)
[2019-11-16 02:35] LABS: Basophils # 0.1 K/mcL (0.0-0.2); Basophils % 1.1 %; Eosinophils # 0.3 K/mcL (0.0-0.6); Eosinophils % 3.9 %; Immature Granulocytes % 0.6 % (0-4); Lymphocytes # 1.2 K/mcL (0.6-4.6); Lymphocytes % 14.7 %; Mean Corpuscular HGB Conc 32.6 g/dL (31.6-35.5); Mean Corpuscular Hemoglobin 31.3 pg (28.0-33.3); Mean Corpuscular Volume 95.9 fL (83.0-100.0); Mean Platelet Volume 12.7 fL (9.4-12.4); Monocytes # 0.9 K/mcL (0.0-1.3); Monocytes % 11.6 %; Neutrophils # 5.5 K/mcL (1.6-8.9); Platelet Count 270 K/mcL (140-400); Red Blood Count 4.38 M/mcL (4.19-5.50); Red Cell Distribution Width 14.7 % (11.5-14.5); Segmented Neutrophils % 68.1 %
[2019-11-16 02:37] LABS: Hemoglobin 13.7 g/dL (12.9-16.9)
[2019-11-16 02:38] LABS: INR 2.9; Prothrombin Time 32.8 Seconds (9.4-12.1)
[2019-11-16 02:55] LABS: Calcium 10.1 mg/dL (8.6-10.3); Potassium 3.5 mEq/L (3.5-5.1)
[2019-11-16] MEDS: Piperacillin/Tazobactam 3.375 GM in 0.9 % Sodium Chloride Mini Bag 100 ML IVPB SCH ×2 (07:46→16:28)
[2019-11-16] MEDS: lisinopriL 5 MG TABLET PO SCH (07:47)
[2019-11-16] MEDS: allopurinoL 300 MG TABLET PO SCH (07:47)
[2019-11-16] MEDS: DilTIAZem CD (24hr) 180 MG CAP.ER.24H PO SCH (07:47)
[2019-11-16] MEDS: Furosemide 40 MG TABLET PO SCH (07:47)
[2019-11-16] MEDS: BuPROPion XL (24 HR) 150 MG TABLET PO SCH (07:47)
[2019-11-16] MEDS: clonazePAM 1 MG TABLET PO SCH ×2 (07:48→14:25)
[2019-11-16] MEDS: Cholecalciferol (D-3) 1,000 UNIT (25MCG) TABLET PO SCH (07:48)
[2019-11-16] MEDS: Nystatin POWDER 30 GM BOTTLE TP SCH (07:49)
[2019-11-16] MEDS ORDERED: Metoprolol XL (24 HR) Succ 25 MG TAB.ER.24H PO SCH (09:00)
[2019-11-16] MEDS ORDERED: 0.9 % Sodium Chloride 1,000 ML IVC ONE (09:48)
[2019-11-16 12:34] LABS: Calcium 10.4 mg/dL (8.6-10.3); Potassium 3.5 mEq/L (3.5-5.1)
[2019-11-16] MEDS ORDERED: FLU Vac QV 20-21 (6Month+)/PF 0.5 ML SYRINGE IM ONE (13:55)
[2019-11-16 14:01] VITALS: BP 120/76
[2019-11-16] MEDS ORDERED: *HR* Warfarin 4 MG TABLET PO ONE (18:00)
== END 2019-11-16 17:23 | disposition home health service (06) | DRG 720 ==
LOC: 2NNU 15:06 → EMEROOARM 15:06 → SUATTDRO 18:58 → 2NNU 19:54 → SUATTDRO 11-13 15:27 → 3BNU 11-15 18:22
PROVIDERS: ADMIT Pharmacist; ATTEND Internal Medicine

== ENCOUNTER 2020-11-03 18:52 | Inpatient (IN) ==
[2020-11-03] MEDS ORDERED: Piperacillin/Tazobactam 3.375 GM in 0.9 % Sodium Chloride Mini Bag 100 ML IVPB ONE (19:44)
[2020-11-03] MEDS ORDERED: Isovue-370 500 ML BOTTLE IVP ONE (19:45)
[2020-11-03] MEDS ORDERED: Clindamycin 600 MG/50 ML 600 MG/50 ML IV.SOLN IVPB STA (19:45)
[2020-11-03 20:42] LABS: Basophils # 0.1 K/mcL (0.0-0.2); Basophils % 0.4 %; Hematocrit 39.3 % (37.5-50.1); Hemoglobin 13.2 g/dL (12.9-16.9); Immature Granulocytes % 2.1 % (0-4); Immature Platelets 14.1 % (1.1-6.1); Lymphocytes # 0.5 K/mcL (0.6-4.6); Lymphocytes % 2.5 %; Mean Corpuscular HGB Conc 33.6 g/dL (31.6-35.5); Mean Corpuscular Hemoglobin 31.1 pg (28.0-33.3); Mean Corpuscular Volume 92.7 fL (83.0-100.0); Mean Platelet Volume 13.2 fL (9.4-12.4); Monocytes # 1.4 K/mcL (0.0-1.3); Monocytes % 6.7 %; Neutrophils # 18.4 K/mcL (1.6-8.9); Platelet Count 221 K/mcL (140-400); Red Blood Count 4.24 M/mcL (4.19-5.50); Red Cell Distribution Width 15.7 % (11.5-14.5); Segmented Neutrophils % 88.3 %; White Blood Count 20.9 K/mcL (4.3-11.1)
[2020-11-03 20:46] LABS: Bacteria,Urine Few per hpf (None-Few); Bilirubin,Urine Negative (Negative); Blood,Urine Trace (Negative); Clarity,Urine Clear (Clear); Color,Urine Light-Orange (Yellow); Glucose,Urine (UA) Normal (Normal); Ketones,Urine Trace mg/dL (Negative); Leukocyte Esterase,Urine Moderate (Negative); Mucus,Urine Few per lpf (None-Few); Nitrite,Urine Negative (Negative); PH,Urine 5.5 pH Units (5.0-8.0); Protein,Urine 30 mg/dL (Neg-Trace); RBC,Urine 0-3 per hpf (0-3); Specific Gravity,Urine 1.025 (1.010-1.025); Squamous Epithelial Cell,Urine Few per hpf (None-Few); WBC,Urine 15-30 per hpf (0-3)
[2020-11-03 20:49] LABS: BUN/Creatinine Ratio 14 (6-26); Blood Urea Nitrogen 20 mg/dL (6-20); Calcium 9.6 mg/dL (8.6-10.3); Carbon Dioxide 24 mEq/L (23-29); Chloride 97 mEq/L (98-107); Glucose 75 mg/dL (70-105); Osmolality,Calculated 273 (280-300); Potassium 3.9 mEq/L (3.5-5.1); Sodium 131 mEq/L (136-145); eGFR For African Americans > 60 (> 60); eGFR For Non-African Americans 52 (> 60)
[2020-11-03] MEDS ORDERED: 0.9 % Sodium Chloride 1,000 ML IVC ONE (21:29)
[2020-11-04] MEDS ORDERED: 0.9 % Sodium Chloride 1,000 ML IVC ONE (01:07)
[2020-11-04] MEDS ORDERED: Ondansetron 4 MG/2 ML VIAL IVP PRN (02:42)
[2020-11-04] MEDS ORDERED: Naloxone 0.4 MG/ML INJ IVP PRN (02:42)
[2020-11-04] MEDS ORDERED: D5% in Water 1,000 ML IVC PRN (03:21)
[2020-11-04] MEDS ORDERED: Dextrose Gel 15 GM/37.5 ML TUBE PO PRN ×2 (03:21)
[2020-11-04] MEDS ORDERED: *HR* Dextrose 50 % in Water (Syg) 50 ML SYRINGE IVP PRN (03:21)
[2020-11-04] MEDS ORDERED: *HR* Metoprolol 5 MG/5 ML VIAL IVP PRN (04:00)
[2020-11-04 04:45] LABS: Eosinophils % 0.1 %
[2020-11-04 04:46] LABS: Basophils # 0.1 K/mcL (0.0-0.2); Basophils % 0.3 %; Hematocrit 41.2 % (37.5-50.1); Hemoglobin 13.6 g/dL (12.9-16.9); Immature Granulocytes % 1.1 % (0-4); Immature Platelets 17.4 % (1.1-6.1); Lymphocytes # 0.5 K/mcL (0.6-4.6); Mean Corpuscular Hemoglobin 30.6 pg (28.0-33.3); Mean Corpuscular Volume 92.8 fL (83.0-100.0); Mean Platelet Volume 13.8 fL (9.4-12.4); Monocytes # 0.8 K/mcL (0.0-1.3); Monocytes % 4.5 %; Platelet Count 209 K/mcL (140-400); Red Blood Count 4.44 M/mcL (4.19-5.50); Red Cell Distribution Width 15.8 % (11.5-14.5); White Blood Count 18.1 K/mcL (4.3-11.1)
[2020-11-04 04:49] LABS: Neutrophils # 16.5 K/mcL (1.6-8.9)
[2020-11-04 04:57] LABS: Alanine Aminotransferase 16 Units/L (7-52); Albumin 3.9 g/dL (3.5-5.7); Albumin/Globulin Ratio 1.2 (1.1-2.2); Alkaline Phosphatase 76 Units/L (34-104); Aspartate Amino Transferase 23 Units/L (13-39); BUN/Creatinine Ratio 15 (6-26); Bilirubin,Total 3.3 mg/dL (0.3-1.0); Blood Urea Nitrogen 20 mg/dL (6-20); Calcium 9.4 mg/dL (8.6-10.3); Carbon Dioxide 22 mEq/L (23-29); Chloride 97 mEq/L (98-107); Globulin 3.3 g/dL (2.4-3.5); Glucose 77 mg/dL (70-105); Magnesium 1.3 mg/dL (1.6-2.6); Osmolality,Calculated 275 (280-300); Potassium 3.6 mEq/L (3.5-5.1); Sodium 132 mEq/L (136-145); Total Protein 7.2 g/dL (6.4-8.9); eGFR For African Americans > 60 (> 60); eGFR For Non-African Americans 57 (> 60)
[2020-11-04 05:09] LABS: INR 2.4; Prothrombin Time 26.9 Seconds (9.4-12.1)
[2020-11-04 05:36] LABS: Adenovirus Not Detected (Not Detect); Bordetella Pertussis Not Detected (Not Detect); Chlamydophila pneumoniae Not Detected (Not Detect); Coronavirus 229E Not Detected (Not Detect); Coronavirus HKU1 Not Detected (Not Detect); Coronavirus NL63 Not Detected (Not Detect); Coronavirus OC43 Not Detected (Not Detect); Human Metapneumovirus Not Detected (Not Detect); Human Rhinovirus/Enterovirus Not Detected (Not Detect); Influenza A Subtype 2009 H1 Not Detected (Not Detect); Influenza B Not Detected (Not Detect); Mycoplasma pneumoniae Not Detected (Not Detect); Parainfluenza Virus 1 Not Detected (Not Detect); Parainfluenza Virus 2 Not Detected (Not Detect); Parainfluenza Virus 3 Not Detected (Not Detect); Parainfluenza Virus 4 Not Detected (Not Detect); Respiratory Syncytial Virus Not Detected (Not Detect); SARS-CoV-2 Not Detected (Not Detect)
[2020-11-04] MEDS: 0.9 % Sodium Chloride 1,000 ML IVC SCH ×2 (08:07→14:47)
[2020-11-04] MEDS: Insulin LISPRO 300 UNITS/3 ML VIAL SUBQ SCH ×3 (08:07→17:02)
[2020-11-04] MEDS: Piperacillin/Tazobactam 3.375 GM in 0.9 % Sodium Chloride Mini Bag 100 ML IVPB SCH ×2 (08:08→19:00)
[2020-11-04] MEDS: Metoprolol XL (24 HR) Succ 25 MG TAB.ER.24H PO SCH ×2 (08:08→12:43)
[2020-11-04] MEDS ORDERED: clonazePAM 1 MG TABLET PO PRN (16:16)
[2020-11-04] MEDS ORDERED: DilTIAZem SR (12hr) 60 MG CAP.ER.12H PO ONE (16:47)
[2020-11-04] MEDS: Vancomycin 2,000 MG/520 ML IV.SOLN IVPB SCH (17:01)
[2020-11-04] MEDS: rOPINIRole 0.25 MG TABLET PO SCH (21:58)
[2020-11-05] MEDS: Piperacillin/Tazobactam 3.375 GM in 0.9 % Sodium Chloride Mini Bag 100 ML IVPB SCH ×3 (01:49→18:03)
[2020-11-05] MEDS: Vancomycin 2,000 MG/520 ML IV.SOLN IVPB SCH ×2 (04:30→16:19)
[2020-11-05 05:02] LABS: Basophils # 0.1 K/mcL (0.0-0.2); Basophils % 0.4 %; Eosinophils # 0.5 K/mcL (0.0-0.6); Eosinophils % 4.5 %; Hematocrit 35.8 % (37.5-50.1); Hemoglobin 11.9 g/dL (12.9-16.9); Immature Granulocytes % 0.7 % (0-4); Immature Platelets 14.1 % (1.1-6.1); Lymphocytes # 0.8 K/mcL (0.6-4.6); Mean Corpuscular HGB Conc 33.2 g/dL (31.6-35.5); Mean Corpuscular Hemoglobin 30.5 pg (28.0-33.3); Mean Corpuscular Volume 91.8 fL (83.0-100.0); Mean Platelet Volume 13.3 fL (9.4-12.4); Monocytes # 1.1 K/mcL (0.0-1.3); Neutrophils # 9.3 K/mcL (1.6-8.9); Platelet Count 198 K/mcL (140-400); Red Cell Distribution Width 15.8 % (11.5-14.5); Segmented Neutrophils % 78.4 %; White Blood Count 11.9 K/mcL (4.3-11.1)
[2020-11-05 05:11] LABS: INR 2.6; Prothrombin Time 28.3 Seconds (9.4-12.1)
[2020-11-05 05:14] LABS: BUN/Creatinine Ratio 20 (6-26); Blood Urea Nitrogen 20 mg/dL (6-20); Calcium 9.2 mg/dL (8.6-10.3); Carbon Dioxide 23 mEq/L (23-29); Chloride 102 mEq/L (98-107); Glucose 99 mg/dL (70-105); Osmolality,Calculated 279 (280-300); Potassium 3.7 mEq/L (3.5-5.1); Sodium 133 mEq/L (136-145); eGFR For African Americans > 60 (> 60); eGFR For Non-African Americans > 60 (> 60)
[2020-11-05] MEDS: DilTIAZem CD (24hr) 300 MG CAP.ER.24H PO SCH (07:39)
[2020-11-05] MEDS: lisinopriL 5 MG TABLET PO SCH (07:39)
[2020-11-05] MEDS: BuPROPion XL (24 HR) 150 MG TABLET PO SCH (07:39)
[2020-11-05] MEDS: Metoprolol XL (24 HR) Succ 25 MG TAB.ER.24H PO SCH (07:40)
[2020-11-05] MEDS: Insulin LISPRO 300 UNITS/3 ML VIAL SUBQ SCH ×3 (07:50→18:50)
[2020-11-05] MEDS ORDERED: Gadolinium Contrast Agent (WT Based) IV PRN (17:46)
[2020-11-05] MEDS: rOPINIRole 0.25 MG TABLET PO SCH (21:25)
[2020-11-06] MEDS: Piperacillin/Tazobactam 3.375 GM in 0.9 % Sodium Chloride Mini Bag 100 ML IVPB SCH ×3 (00:14→15:26)
[2020-11-06 02:42] LABS: Basophils # 0.1 K/mcL (0.0-0.2); Basophils % 0.8 %; Eosinophils # 0.6 K/mcL (0.0-0.6); Eosinophils % 6.6 %; Hematocrit 36.1 % (37.5-50.1); Hemoglobin 11.7 g/dL (12.9-16.9); Immature Granulocytes % 1.2 % (0-4); Immature Platelets 14.9 % (1.1-6.1); Lymphocytes # 1.1 K/mcL (0.6-4.6); Lymphocytes % 13.2 %; Mean Corpuscular HGB Conc 32.4 g/dL (31.6-35.5); Mean Corpuscular Hemoglobin 30.6 pg (28.0-33.3); Mean Corpuscular Volume 94.5 fL (83.0-100.0); Monocytes # 1.1 K/mcL (0.0-1.3); Monocytes % 12.6 %; Neutrophils # 5.5 K/mcL (1.6-8.9); Platelet Count 182 K/mcL (140-400); Red Blood Count 3.82 M/mcL (4.19-5.50); Red Cell Distribution Width 15.7 % (11.5-14.5); Segmented Neutrophils % 65.6 %; White Blood Count 8.4 K/mcL (4.3-11.1)
[2020-11-06 03:02] LABS: BUN/Creatinine Ratio 18 (6-26); Blood Urea Nitrogen 16 mg/dL (6-20); Calcium 8.9 mg/dL (8.6-10.3); Carbon Dioxide 24 mEq/L (23-29); Chloride 104 mEq/L (98-107); Glucose 85 mg/dL (70-105); Osmolality,Calculated 278 (280-300); Potassium 3.4 mEq/L (3.5-5.1); Sodium 134 mEq/L (136-145); eGFR For African Americans > 60 (> 60); eGFR For Non-African Americans > 60 (> 60)
[2020-11-06] MEDS: Vancomycin 2,000 MG/520 ML IV.SOLN IVPB SCH ×2 (03:30→15:25)
[2020-11-06] MEDS ORDERED: *HR* OxyCODONE/APAP 7.5/325 TABLET PO ONE (08:00)
[2020-11-06] MEDS: lisinopriL 5 MG TABLET PO SCH (08:17)
[2020-11-06] MEDS: BuPROPion XL (24 HR) 150 MG TABLET PO SCH (08:17)
[2020-11-06] MEDS: Insulin LISPRO 300 UNITS/3 ML VIAL SUBQ SCH ×3 (08:17→18:15)
[2020-11-06] MEDS: DilTIAZem CD (24hr) 300 MG CAP.ER.24H PO SCH (08:17)
[2020-11-06] MEDS: Metoprolol XL (24 HR) Succ 25 MG TAB.ER.24H PO SCH (08:17)
[2020-11-06 11:27] LABS: Adenovirus F 40/41 PCR Not detected (Not detect); Astrovirus PCR Not detected (Not detect); C.difficile Toxin A/B Gene PCR Not detected (Not detect); Campylobacter by PCR Not detected (Not detect); Cryptosporidium by PCR Not detected (Not detect); Cyclospora cayetanensis PCR Not detected (Not detect); E. coli O157 by PCR Not detected (Not detect); Entamoeba histolytica PCR Not detected (Not detect); Enteroaggregative E.coli(EAEC) Not detected (Not detect); Enteropathogenic E.coli(EPEC) Not detected (Not detect); Enterotoxigenic E.coli (ETEC) Not detected (Not detect); Giardia lamblia PCR Not detected (Not detect); Norovirus GI/GII PCR Not detected (Not detect); Plesiomonas shigelloides PCR Not detected (Not detect); Rotavirus A PCR Not detected (Not detect); Salmonella PCR Not detected (Not detect); Sapovirus PCR Not detected (Not detect); Shig/EnteroinvasiveE coli EIEC Not detected (Not detect); Shigalike tox-prod E coli STEC Not detected (Not detect); Vibrio PCR Not detected (Not detect); Vibrio cholerae PCR Not detected (Not detect); Yersinia enterocolitica PCR Not detected (Not detect)
[2020-11-06] MEDS ORDERED: *HR* Heparin 5,000 UNIT/ML VIAL SQ SCH (14:00)
[2020-11-06] MEDS ORDERED: *HR* Warfarin 4 MG TABLET PO ONE (18:00)
[2020-11-06] MEDS ORDERED: Warfarin perPT PO PRN (18:00)
[2020-11-06] MEDS: rOPINIRole 0.25 MG TABLET PO SCH (21:21)
[2020-11-07] MEDS: Piperacillin/Tazobactam 3.375 GM in 0.9 % Sodium Chloride Mini Bag 100 ML IVPB SCH ×4 (00:56→23:06)
[2020-11-07] MEDS: Vancomycin 2,000 MG/520 ML IV.SOLN IVPB SCH ×2 (04:10→14:54)
[2020-11-07 07:00] LABS: Basophils % 0.5 %; Mean Corpuscular Hemoglobin 30.8 pg (28.0-33.3)
[2020-11-07 07:02] LABS: Eosinophils # 0.5 K/mcL (0.0-0.6); Hematocrit 35.2 % (37.5-50.1); Hemoglobin 11.6 g/dL (12.9-16.9); Immature Granulocytes % 0.9 % (0-4); Immature Platelets 14.4 % (1.1-6.1); Lymphocytes # 1.2 K/mcL (0.6-4.6); Lymphocytes % 13.8 %; Mean Corpuscular Volume 93.4 fL (83.0-100.0); Mean Platelet Volume 12.7 fL (9.4-12.4); Monocytes # 1.3 K/mcL (0.0-1.3); Neutrophils # 5.4 K/mcL (1.6-8.9); Platelet Count 193 K/mcL (140-400); Red Blood Count 3.77 M/mcL (4.19-5.50); Red Cell Distribution Width 15.8 % (11.5-14.5); Segmented Neutrophils % 63.8 %; White Blood Count 8.5 K/mcL (4.3-11.1)
[2020-11-07 07:13] LABS: INR 1.9; Prothrombin Time 21.5 Seconds (9.4-12.1)
[2020-11-07 07:19] LABS: BUN/Creatinine Ratio 12 (6-26); Blood Urea Nitrogen 12 mg/dL (6-20); Calcium 9.2 mg/dL (8.6-10.3); Carbon Dioxide 25 mEq/L (23-29); Chloride 104 mEq/L (98-107); Glucose 86 mg/dL (70-105); Osmolality,Calculated 281 (280-300); Potassium 3.6 mEq/L (3.5-5.1); Sodium 136 mEq/L (136-145); eGFR For African Americans > 60 (> 60); eGFR For Non-African Americans > 60 (> 60)
[2020-11-07] MEDS: Insulin LISPRO 300 UNITS/3 ML VIAL SUBQ SCH ×3 (08:27→17:38)
[2020-11-07] MEDS: Metoprolol XL (24 HR) Succ 25 MG TAB.ER.24H PO SCH (08:29)
[2020-11-07] MEDS: DilTIAZem CD (24hr) 300 MG CAP.ER.24H PO SCH (08:29)
[2020-11-07] MEDS: lisinopriL 5 MG TABLET PO SCH (08:29)
[2020-11-07] MEDS: BuPROPion XL (24 HR) 150 MG TABLET PO SCH (08:29)
[2020-11-07] MEDS: *HR* OxyCODONE/APAP 7.5/325 TABLET PO PRN ×2 (11:50→23:06)
[2020-11-07] MEDS ORDERED: *HR* Warfarin 5 MG TABLET PO ONE (18:00)
[2020-11-07] MEDS: rOPINIRole 0.25 MG TABLET PO SCH (21:44)
[2020-11-08 05:18] LABS: BUN/Creatinine Ratio 14 (6-26); Blood Urea Nitrogen 13 mg/dL (6-20); Calcium 9.1 mg/dL (8.6-10.3); Carbon Dioxide 23 mEq/L (23-29); Chloride 104 mEq/L (98-107); Glucose 77 mg/dL (70-105); Osmolality,Calculated 281 (280-300); Potassium 3.6 mEq/L (3.5-5.1); Sodium 136 mEq/L (136-145); eGFR For African Americans > 60 (> 60); eGFR For Non-African Americans > 60 (> 60)
[2020-11-08 05:38] LABS: Lymphocytes # 1.4 K/mcL (0.6-4.6); Lymphocytes % 15.6 %; White Blood Count 8.8 K/mcL (4.3-11.1)
[2020-11-08 05:40] LABS: Basophils # 0.1 K/mcL (0.0-0.2); Basophils % 0.6 %; Eosinophils # 0.5 K/mcL (0.0-0.6); Eosinophils % 5.6 %; Hematocrit 33.9 % (37.5-50.1); Hemoglobin 11.5 g/dL (12.9-16.9); Immature Granulocytes % 0.9 % (0-4); Immature Platelets 15.4 % (1.1-6.1); Mean Corpuscular HGB Conc 33.9 g/dL (31.6-35.5); Mean Corpuscular Hemoglobin 31.7 pg (28.0-33.3); Mean Corpuscular Volume 93.4 fL (83.0-100.0); Mean Platelet Volume 13.7 fL (9.4-12.4); Monocytes # 1.2 K/mcL (0.0-1.3); Monocytes % 14.1 %; Neutrophils # 5.6 K/mcL (1.6-8.9); Platelet Count 211 K/mcL (140-400); Red Blood Count 3.63 M/mcL (4.19-5.50); Segmented Neutrophils % 63.2 %
[2020-11-08 05:45] LABS: INR 2.2; Prothrombin Time 24.5 Seconds (9.4-12.1)
[2020-11-08] MEDS: Vancomycin 2,000 MG/520 ML IV.SOLN IVPB SCH ×2 (06:08→18:17)
[2020-11-08 07:27] LABS: Platelet Estimate Normal (Normal)
[2020-11-08] MEDS: lisinopriL 5 MG TABLET PO SCH (08:08)
[2020-11-08] MEDS: BuPROPion XL (24 HR) 150 MG TABLET PO SCH (08:08)
[2020-11-08] MEDS: *HR* OxyCODONE/APAP 7.5/325 TABLET PO PRN ×2 (08:09→21:37)
[2020-11-08] MEDS: Metoprolol XL (24 HR) Succ 25 MG TAB.ER.24H PO SCH (08:09)
[2020-11-08] MEDS: DilTIAZem CD (24hr) 300 MG CAP.ER.24H PO SCH (08:09)
[2020-11-08] MEDS: Piperacillin/Tazobactam 3.375 GM in 0.9 % Sodium Chloride Mini Bag 100 ML IVPB SCH ×2 (08:10→15:19)
[2020-11-08] MEDS ORDERED: Lidocaine Viscous Oral Soln 15 ML SOLUTION MM PRN (09:58)
[2020-11-08] MEDS: Insulin LISPRO 300 UNITS/3 ML VIAL SUBQ SCH ×3 (10:25→17:50)
[2020-11-08] MEDS ORDERED: *HR* Warfarin 4 MG TABLET PO ONE (18:00)
[2020-11-08] MEDS: rOPINIRole 0.25 MG TABLET PO SCH (21:37)
[2020-11-09] MEDS: Piperacillin/Tazobactam 3.375 GM in 0.9 % Sodium Chloride Mini Bag 100 ML IVPB SCH ×3 (00:27→17:50)
[2020-11-09] MEDS: *HR* OxyCODONE/APAP 7.5/325 TABLET PO PRN (05:04)
[2020-11-09] MEDS: Vancomycin 2,000 MG/520 ML IV.SOLN IVPB SCH ×2 (05:05→17:51)
[2020-11-09 05:30] LABS: INR 2.5; Prothrombin Time 27.3 Seconds (9.4-12.1)
[2020-11-09] MEDS: Insulin LISPRO 300 UNITS/3 ML VIAL SUBQ SCH ×3 (08:01→16:42)
[2020-11-09] MEDS: Metoprolol XL (24 HR) Succ 25 MG TAB.ER.24H PO SCH (10:12)
[2020-11-09] MEDS: DilTIAZem CD (24hr) 300 MG CAP.ER.24H PO SCH (10:12)
[2020-11-09] MEDS: BuPROPion XL (24 HR) 150 MG TABLET PO SCH (10:12)
[2020-11-09] MEDS: lisinopriL 5 MG TABLET PO SCH (10:12)
[2020-11-09] MEDS ORDERED: *HR* Warfarin 2 MG TABLET PO ONE (18:00)
[2020-11-09] MEDS: Lactobacillus 1 EACH CAP.SPRINK PO SCH (20:12)
[2020-11-09] MEDS: rOPINIRole 0.25 MG TABLET PO SCH (20:12)
[2020-11-10] MEDS: Piperacillin/Tazobactam 3.375 GM in 0.9 % Sodium Chloride Mini Bag 100 ML IVPB SCH ×4 (00:06→23:33)
[2020-11-10] MEDS: *HR* OxyCODONE/APAP 7.5/325 TABLET PO PRN ×3 (00:12→20:18)
[2020-11-10] MEDS: Vancomycin 2,000 MG/520 ML IV.SOLN IVPB SCH ×2 (05:26→17:33)
[2020-11-10 08:06] LABS: INR 2.4; Prothrombin Time 26.5 Seconds (9.4-12.1)
[2020-11-10] MEDS: Insulin LISPRO 300 UNITS/3 ML VIAL SUBQ SCH ×3 (08:43→17:26)
[2020-11-10] MEDS: Lactobacillus 1 EACH CAP.SPRINK PO SCH ×2 (08:57→20:14)
[2020-11-10] MEDS: lisinopriL 5 MG TABLET PO SCH (08:57)
[2020-11-10] MEDS: Metoprolol XL (24 HR) Succ 25 MG TAB.ER.24H PO SCH (08:57)
[2020-11-10] MEDS: DilTIAZem CD (24hr) 300 MG CAP.ER.24H PO SCH (08:58)
[2020-11-10] MEDS: BuPROPion XL (24 HR) 150 MG TABLET PO SCH (08:58)
[2020-11-10 13:12] LABS: eGFR For African Americans > 60 (> 60); eGFR For Non-African Americans > 60 (> 60)
[2020-11-10] MEDS ORDERED: Methyl Salicylate/Menthol 57 APPL/57 GM TUBE TP SCH (15:00)
[2020-11-10] MEDS: Methyl Salicylate/Menthol 85 APPL/85 GM TUBE TP SCH (17:35)
[2020-11-10] MEDS ORDERED: *HR* Warfarin 2 MG TABLET PO ONE (18:00)
[2020-11-10] MEDS: rOPINIRole 0.25 MG TABLET PO SCH (20:14)
[2020-11-11 05:02] LABS: INR 2.3; Prothrombin Time 25.8 Seconds (9.4-12.1)
[2020-11-11 05:13] LABS: BUN/Creatinine Ratio 10 (6-26); Blood Urea Nitrogen 10 mg/dL (6-20); Calcium 9.1 mg/dL (8.6-10.3); Carbon Dioxide 24 mEq/L (23-29); Chloride 105 mEq/L (98-107); Glucose 88 mg/dL (70-105); Osmolality,Calculated 282 (280-300); Potassium 3.3 mEq/L (3.5-5.1); Sodium 137 mEq/L (136-145); eGFR For African Americans > 60 (> 60); eGFR For Non-African Americans > 60 (> 60)
[2020-11-11] MEDS: Vancomycin 2,000 MG/520 ML IV.SOLN IVPB SCH ×2 (05:34→18:29)
[2020-11-11] MEDS: Insulin LISPRO 300 UNITS/3 ML VIAL SUBQ SCH ×2 (07:40→12:00)
[2020-11-11] MEDS: Metoprolol XL (24 HR) Succ 25 MG TAB.ER.24H PO SCH (08:39)
[2020-11-11] MEDS: lisinopriL 5 MG TABLET PO SCH (08:39)
[2020-11-11] MEDS: DilTIAZem CD (24hr) 300 MG CAP.ER.24H PO SCH (08:40)
[2020-11-11] MEDS: Lactobacillus 1 EACH CAP.SPRINK PO SCH ×2 (08:40→20:13)
[2020-11-11] MEDS: BuPROPion XL (24 HR) 150 MG TABLET PO SCH (08:40)
[2020-11-11] MEDS: Piperacillin/Tazobactam 3.375 GM in 0.9 % Sodium Chloride Mini Bag 100 ML IVPB SCH ×3 (08:40→23:25)
[2020-11-11] MEDS: *HR* OxyCODONE/APAP 7.5/325 TABLET PO PRN ×2 (08:41→20:25)
[2020-11-11] MEDS: Methyl Salicylate/Menthol 85 APPL/85 GM TUBE TP SCH ×3 (08:42→20:26)
[2020-11-11] MEDS ORDERED: *HR* Warfarin 3 MG TABLET PO ONE (18:00)
[2020-11-11] MEDS: rOPINIRole 0.25 MG TABLET PO SCH (20:13)
[2020-11-11] MEDS: Cholecalciferol (D-3) 1,000 UNIT (25MCG) TABLET PO SCH (20:44)
[2020-11-12 05:49] LABS: INR 2.2; Prothrombin Time 24.4 Seconds (9.4-12.1)
[2020-11-12] MEDS: Vancomycin 2,000 MG/520 ML IV.SOLN IVPB SCH (05:52)
[2020-11-12 05:58] LABS: BUN/Creatinine Ratio 9 (6-26); Blood Urea Nitrogen 10 mg/dL (6-20); Calcium 9.3 mg/dL (8.6-10.3); Carbon Dioxide 24 mEq/L (23-29); Chloride 108 mEq/L (98-107); Glucose 90 mg/dL (70-105); Osmolality,Calculated 285 (280-300); Potassium 3.4 mEq/L (3.5-5.1); Sodium 138 mEq/L (136-145); eGFR For African Americans > 60 (> 60); eGFR For Non-African Americans > 60 (> 60)
[2020-11-12] MEDS: lisinopriL 5 MG TABLET PO SCH (08:48)
[2020-11-12] MEDS: Cholecalciferol (D-3) 1,000 UNIT (25MCG) TABLET PO SCH (08:48)
[2020-11-12] MEDS: BuPROPion XL (24 HR) 150 MG TABLET PO SCH (08:48)
[2020-11-12] MEDS: Lactobacillus 1 EACH CAP.SPRINK PO SCH (08:48)
[2020-11-12] MEDS: Metoprolol XL (24 HR) Succ 25 MG TAB.ER.24H PO SCH (08:48)
[2020-11-12] MEDS: *HR* OxyCODONE/APAP 7.5/325 TABLET PO PRN (08:49)
[2020-11-12] MEDS: DilTIAZem CD (24hr) 300 MG CAP.ER.24H PO SCH (08:49)
[2020-11-12] MEDS: Methyl Salicylate/Menthol 85 APPL/85 GM TUBE TP SCH (08:50)
[2020-11-12] MEDS: Piperacillin/Tazobactam 3.375 GM in 0.9 % Sodium Chloride Mini Bag 100 ML IVPB SCH (08:50)
[2020-11-12 12:08] VITALS: BP 111/69; PULSE 76; TEMP 98.4; O2SAT 93
[2020-11-12] MEDS ORDERED: *HR* Warfarin 4 MG TABLET PO ONE (18:00)
== END 2020-11-12 15:41 | disposition home health service (06) | DRG 720 ==
LOC: EMEROOARM 18:52 → 4WAOSI 18:52 → SUATTDRO 11-04 04:54
PROVIDERS: ADMIT Student in an Organized Health Care Education/Training Program; ATTEND Internal Medicine
PROC: IRDRAIN (2020-11-09 12:00)